=== PATIENT | female | born 1975 | race Caucasian/White ===

== ENCOUNTER 2016-07-06 15:20 | Emergency (ER) | payer MEDICARE, MEDICAID ==
--- NOTE | 2016-07-06 15:24 | EDM.PDOC ---
ED HPI EYE COMPLAINT - General Chief Complaint: Eye Problems Stated Complaint: RT EYE Time Seen by Provider: 07/06/16 15:23 Source: Reports: Patient, Old records, RN, RN notes reviewed History Limitations: Reports: No limitations - History of Present Illness INITIAL COMMENTS - FREE TEXT/NARRATIVE: Patient complains of right eye. Denies injury but awoke this morning with irritation. Denies any visual changes or matting. Symptom Onset Date: 07/06/16 Location: right eye Quality: Reports: Ache Improves with: Reports: None Worsens with: Reports: None - Related Data Allergies/ADRs: Allergies cefdinir [Cefdinir] Allergy (Verified 07/06/16 15:30) Rash sulfamethoxazole [From [facility]] Allergy (Verified 07/06/16 15:30) Airway Tightness Home Meds: Ambulatory Orders Medication Instructions Recorded Confirmed QUEtiapine Fumarate [Seroquel] 800 mg PO BEDTIME 07/22/13 02/07/16 Albuterol [Ventolin HFA] 2 puff INH Q6H PRN 08/23/13 02/07/16 Fluticasone/Salmeterol [Advair 1 puff INH BID 06/04/14 02/07/16 250-50] Gabapentin [Neurontin] 1 tab PO TID 07/06/15 02/07/16 Omeprazole [Prilosec] 1 tab PO DAILY 07/06/15 02/07/16 Aspirin [Lo-Dose Aspirin EC] 81 mg PO DAILY 02/07/16 02/07/16 Levothyroxine 150 mcg PO ACBREAKFAST 02/07/16 02/07/16 Lisinopril 5 mg PO DAILY 02/07/16 02/07/16 Past Medical History HEENT History: Reports: Impaired vision Other HEENT History: wears glasses Cardiovascular History: Reports: Hypertension Respiratory History: Reports: Other (see below) Other Respiratory History: chronic bronchitis Gastrointestinal History: Reports: GERD, Hepatitis Genitourinary History: Reports: Other (see below) Other Genitourinary History: Stage 3 renal disease Psychiatric History: Reports: Bipolar, PTSD Endocrine/Metabolic History: Reports: Diabetes, type II, Hypothyroidism - Infectious Disease History Infectious Disease History: Reports: Hepatitis C - Past Surgical History HEENT Surgical History: Reports: Adenoidectomy, Tonsillectomy Female Surgical History: Reports: section Musculoskeletal Surgical History: Reports: Arthroscopic knee, Other (see below) Other Musculoskeletal Surgeries/Procedures:: surgery on left little finger Social & Family History - Family History Family Medical History: Noncontributory - Tobacco Use Smoking Status *Q: Current Every Day Smoker Years of Tobacco use: 10 Packs/Tins Daily: 10 Used Tobacco, but Quit: No Month Tobacco Last Used: 09/26/2014 Second Hand Smoke Exposure: Yes - Caffeine Use Caffeine Use: Reports: Coffee, Soda - Alcohol Use Days Per Week of Alcohol Use: 3 Number of Drinks Per Day: 6 Total Drinks Per Week: 18 - Recreational Drug Use Recreational Drug Use: No - Living Situation & Occupation Living situation: Reports: with family Occupation: employed ED ROS GENERAL - Review of Systems Review Of Systems: ROS reveals no pertinent complaints other than HPI. ED EXAM GENERAL W FULL EYE - Physical Exam Exam: See Below Exam Limited By: No limitations General Appearance: alert, WD/WN, no apparent distress Eye Exam: right eye: corneal abrasion, normal fundi, left eye: normal inspection , bilateral eye: EOMI, PERRL Eyelids: bilateral: normal appearance Conjunctiva & Sclera: right: injected, left: normal appearance Cornea Exam: right: corneal abrasion, examined with flourescein, left: normal appearance Extraocular Movements: bilateral: intact Pupils: normal accommodation Pupillary Size: bilateral: 4 mm Pupillary Reaction: bilateral: brisk Anterior Chamber: right: normal appearance Ears: normal external exam, normal canal, hearing grossly normal, normal TMs Nose: normal inspection, normal mucosa, no blood Throat/Mouth: Normal inspection, Normal lips, Normal teeth, Normal gums, Normal oropharynx, Normal voice, No airway compromise Head: atraumatic, normocephalic Neck: normal inspection, supple, non-tender, full range of motion Respiratory/Chest: no respiratory distress Psychiatric: normal affect, normal mood Skin Exam: Warm, Dry, Intact, Normal color, No rash Course - Vital Signs Last Recorded V/S: Last Vital Signs Temp 37.2 C 07/06/16 15:26 Pulse 130 H 07/06/16 15:26 Resp 18 07/06/16 15:26 BP 147/92 H 07/06/16 15:26 Pulse Ox 100 07/06/16 15:26 - Orders/Labs/Meds Meds: Medications Discontinued Medications Generic Name Dose Route Start Last Admin Trade Name Juan C PRN Reason Stop Dose Admin Fluorescein Sodium 1 mg 07/06/16 15:41 07/06/16 15:44 Ful-Jaymie EYERT 07/06/16 15:42 1 mg ONETIME ONE Administration Gentamicin Sulfate 1 ml 07/06/16 15:53 07/06/16 16:03 Garamycin 0.3% Ophth Soln EYERT 07/06/16 15:54 1 ml ONETIME ONE Administration Tetracaine HCl 1 ml 07/06/16 15:40 07/06/16 15:44 Tetracaine 0.5% Steri-Unit Tresa EYERT 07/06/16 15:41 1 ml ONETIME ONE Administration Departure - Departure Time of Disposition: 15:54 Disposition: Home, Self-Care 01 Condition: good Clinical Impression: Corneal abrasion Qualifiers: Encounter type: initial encounter Laterality: right Qualified Code(s): S05.01XA - Injury of conjunctiva and corneal abrasion without foreign body, right eye, initial encounter Instructions: Corneal Abrasion, [id number] Forms: ED Department Discharge Additional Instructions: Gentamicin Ophthalmic Soln. 0.3% 1 drop into right eye four times a day for 5 days. Follow up in eye clinic in 2 days for recheck.
[2016-07-06 15:29] VITALS: BP 147/92
[2016-07-06] MEDS ORDERED: Tetracaine HCl/PF 0.5% 4 ML Bottle EYERT ONE (15:40)
[2016-07-06] MEDS ORDERED: Fluorescein 1 MG Ophth Strip EYERT ONE (15:41)
[2016-07-06] MEDS ORDERED: Gentamicin 0.3% Ophth Soln 5 ML Bottle EYERT ONE (15:53)
== END 2016-07-06 16:04 | disposition home or self-care (01) ==
LOC: DL.ED 15:20
DX: S05.01XA Injury of conjunctiva and corneal abrasion without foreign body, right eye, initial encounter (principal); I10 Essential (primary) hypertension; E11.9 Type 2 diabetes mellitus without complications; E03.9 Hypothyroidism, unspecified; F17.210 Nicotine dependence, cigarettes, uncomplicated; Z88.2 Allergy status to sulfonamides; Z79.899 Other long term (current) drug therapy; X58.XXXA Exposure to other specified factors, initial encounter
CPT/HCPCS: 99282; A9270; 99283

== ENCOUNTER 2016-09-28 00:20 | Emergency (ER) | payer MEDICARE, MEDICAID ==
[2016-09-28] MEDS ORDERED: Ondansetron 4 MG/2 ML SDV IV ONE (00:55)
--- NOTE | 2016-09-28 01:01 | EDM.PDOC ---
ED HPI GENERAL MEDICAL PROBLEM - General Chief Complaint: Abdominal Pain Stated Complaint: STOMACH AND CHEST PAIN Time Seen by Provider: 09/28/16 00:45 Source of Information: Reports: Patient History Limitations: Reports: No Limitations - History of Present Illness INITIAL COMMENTS - FREE TEXT/NARRATIVE: This 41 yo female patient reports to the ED with abdominal pain and bloating. The patient reports her symptoms started on Wednesday (6 days ago) and have been getting worse. The patient has not had any clinic visits for her current symptoms. The patient reports she is also feeling nauseated. The patient has a past history of kidney disease, hepitits C, ETOH use, degenerative disk disease and a remote history of drug use. Onset Date: 09/22/16 Duration: Constant, Getting Worse Location: Reports: Abdomen Quality: Reports: Dull, Pressure Severity: Severe Improves with: Reports: None Worsens with: Reports: None Associated Symptoms: Reports: No Other Symptoms - Related Data Allergies Allergy/AdvReac Type Severity Reaction Status Date / Time cefdinir [Cefdinir] Allergy Rash Verified 07/06/16 15:30 sulfamethoxazole Allergy Airway Verified 07/06/16 15:30 [From [facility]] Tightness Home Meds: Home Meds QUEtiapine Fumarate [Seroquel] 800 mg PO BEDTIME 07/22/13 [History] Albuterol [Ventolin HFA] 2 puff INH Q6H PRN 08/23/13 [History] Fluticasone/Salmeterol [Advair 250-50] 1 puff INH BID 06/04/14 [History] Gabapentin [Neurontin] 1 tab PO TID 07/06/15 [History] Omeprazole [Prilosec] 1 tab PO DAILY 07/06/15 [History] Aspirin [Lo-Dose Aspirin EC] 81 mg PO DAILY 02/07/16 [History] Levothyroxine 150 mcg PO ACBREAKFAST 02/07/16 [History] Lisinopril 5 mg PO DAILY 02/07/16 [History] Past Medical History HEENT History: Reports: Impaired Vision Other HEENT History: wears glasses Cardiovascular History: Reports: Hypertension Respiratory History: Reports: Other (See Below) Other Respiratory History: chronic bronchitis Gastrointestinal History: Reports: GERD, Hepatitis Genitourinary History: Reports: Other (See Below) Other Genitourinary History: Stage 3 renal disease Psychiatric History: Reports: Bipolar, PTSD Endocrine/Metabolic History: Reports: Diabetes, Type II, Hypothyroidism - Infectious Disease History Infectious Disease History: Reports: Hepatitis C - Past Surgical History Female Surgical History: Reports: Section Musculoskeletal Surgical History: Reports: Arthroscopic Knee, Other (See Below) Social & Family History - Family History Family Medical History: Noncontributory - Tobacco Use Smoking Status *Q: Current Every Day Smoker Years of Tobacco use: 10 Packs/Tins Daily: 10 Used Tobacco, but Quit: No Month Tobacco Last Used: 09/26/2014 Second Hand Smoke Exposure: Yes - Caffeine Use Caffeine Use: Reports: Coffee, Soda - Alcohol Use Days Per Week of Alcohol Use: 3 Number of Drinks Per Day: 6 Total Drinks Per Week: 18 - Recreational Drug Use Recreational Drug Use: No - Living Situation & Occupation Living situation: Reports: with Family Occupation: Employed ED ROS GENERAL - Review of Systems Review Of Systems: ROS reveals no pertinent complaints other than HPI. ED EXAM, GI/ABD - Physical Exam Exam: See Below Exam Limited By: No Limitations General Appearance: Alert, WD/WN, Moderate Distress Eyes: Bilateral: Normal Appearance, EOMI Ears: Normal External Exam, Normal Canal, Hearing Grossly Normal, Normal TMs Nose: Normal Inspection, Normal Mucosa, No Blood Throat/Mouth: Normal Inspection, Normal Lips, Normal Teeth, Normal Gums, Normal Oropharynx, Normal Voice, No Airway Compromise Head: Atraumatic, Normocephalic Neck: Normal Inspection, Supple, Non-Tender, Full Range of Motion Respiratory/Chest: No Respiratory Distress, Lungs Clear, Normal Breath Sounds, No Accessory Muscle Use, Chest Non-Tender Cardiovascular: Normal Peripheral Pulses, Regular Rate, Rhythm, No Edema, No Gallop, No JVD, No Murmur, No Rub GI/Abdominal: Normal Bowel Sounds, Tenderness (generalized), Distention (diffuse ) (Female) Exam: Deferred Rectal (Female) Exam: Deferred Back Exam: Normal Inspection, Full Range of Motion, NT Extremities: Normal Inspection, Normal Range of Motion, Non-Tender, Normal Capillary Refill, No Pedal Edema Neurological: Alert, Oriented, CN II-XII Intact, Normal Cognition, Normal Gait, Normal Reflexes, No Motor/Sensory Deficits Psychiatric: Normal Affect, Normal Mood Skin Exam: Warm, Dry, Intact, Normal Color, No Rash Lymphatic: No Adenopathy Course - Vital Signs Last Recorded V/S: Last Vital Signs Temp 36.7 C 09/28/16 00:30 Pulse 110 H 09/28/16 00:30 Resp 20 09/28/16 00:30 BP 140/97 H 09/28/16 00:30 Pulse Ox 98 09/28/16 00:30 - Orders/Labs/Meds Labs: Laboratory Tests 09/28/16 09/28/16 09/28/16 Range/Units 00:35 00:35 00:35 WBC 6.7 (5.0-10.0) 10^3/uL RBC 3.34 L (4.2-5.4) 10^6/uL Hgb 11.2 L (12.0-16.0) g/dL Hct 33.2 L (37.0-47.0) % MCV 99.4 (80-100) fL MCH 33.5 (27.0-34.0) pg MCHC 33.7 (33.0-35.0) g/dL Plt Count 60 L (150-450) 10^3/uL Neut % (Auto) 32.4 L (42.2-75.2) % Lymph % (Auto) 57.7 H (20.5-50.1) % [place] % (Auto) 5.8 (2-8) % Eos % (Auto) 3.1 H (1.0-3.0) % Baso % (Auto) 1.0 (0.0-1.0) % Sodium 139 (135-145) mmol/L Potassium 3.3 L (3.6-5.0) mmol/L Chloride 107 (101-111) mmol/L Carbon Dioxide 19.0 L (21.0-31.0) mmol/L Anion Gap 16.3 BUN 7 (7-18) mg/dL Creatinine 0.9 (0.6-1.3) mg/dL Est Cr Clr Drug Dosing TNP Estimated GFR (MDRD) > 60 BUN/Creatinine Ratio 7.77 Glucose 255 H (74-105) mg/dL Calcium 8.4 (8.4-10.2) mg/dl Total Bilirubin 0.6 (0.2-1.0) mg/dL AST 232 H (10-42) IU/L ALT 93 H (10-60) IU/L Alkaline Phosphatase 82 (42-121) IU/L Ammonia 38 H (11-35) umol/L Total Protein 6.4 L (6.7-8.2) g/dl Albumin 3.0 L (3.2-5.5) g/dl Globulin 3.4 Albumin/Globulin Ratio 0.88 Amylase 62 (28-100) U/L Lipase 42 (22-51) U/L Ethyl Alcohol 113 mg/dL Meds: Medications Discontinued Medications Generic Name Dose Route Start Last Admin Trade Name Juan C PRN Reason Stop Dose Admin Iopamidol 100 ml 09/28/16 01:15 09/28/16 01:28 Isovue-300 (61%) IVPUSH 09/28/16 01:16 100 ml ONETIME ONE Administration Ondansetron HCl 4 mg 09/28/16 00:55 09/28/16 01:15 Zofran IV 09/28/16 00:56 4 mg ONETIME ONE Administration Departure - Departure Time of Disposition: 04:57 Disposition: DC/Tfer to Acute Hospital 02 Condition: Poor Clinical Impression: Ascites Qualifiers: Ascites type: other type Qualified Code(s): R18.8 - Other ascites Cirrhosis Qualifiers: Hepatic cirrhosis type: unspecified hepatic cirrhosis Ascites presence: with ascites Qualified Code(s): K74.60 - Unspecified cirrhosis of liver - Discharge Information Forms: Interfacility Transfer EMTALA Care Plan Goals: Discussed the patient's history, examination, lab, and CT results with Dr. Schreiber (Hospitalist with [facility] in [place]). Dr. Schreiber accepted the patient for continued evaluation and further management. The patient will be transported by [facility].
[2016-09-28 01:06] LABS: CHLORIDE,CL 107 mmol/L (101-111); SODIUM,NA 139 mmol/L (135-145)
[2016-09-28] MEDS ORDERED: Iopamidol 612 MG/ML 100 ML Bottle IVPUSH ONE (01:15)
[2016-09-28 03:04] VITALS: BP 168/79
== END 2016-09-28 03:25 ==
LOC: DL.ED 00:20
DX: K74.60 Unspecified cirrhosis of liver (principal); R18.8 Other ascites; H54.7 Unspecified visual loss; K21.9 Gastro-esophageal reflux disease without esophagitis; I12.9 Hypertensive chronic kidney disease with stage 1 through stage 4 chronic kidney disease, or unspecified chronic kidney disease; E11.22 Type 2 diabetes mellitus with diabetic chronic kidney disease; N18.3 Chronic kidney disease, stage 3 (moderate); F17.210 Nicotine dependence, cigarettes, uncomplicated; Z88.2 Allergy status to sulfonamides; Z88.8 Allergy status to other drugs, medicaments and biological substances; Z79.899 Other long term (current) drug therapy
CPT/HCPCS: 36415; 74177; 80053; 82140; 82150; 83690; 85025; 96374; 99285; G0480; J2405; Q9967

== ENCOUNTER 2016-11-20 15:46 | Emergency (ER) | payer MEDICARE, MEDICAID ==
[2016-11-20 16:26] LABS: CHLORIDE,CL 102 mmol/L (101-111); SODIUM,NA 135 mmol/L (135-145)
[2016-11-20] MEDS ORDERED: Potassium Chloride 10 MEQ in Premix Bag 1 BAG IV ONE (16:52)
[2016-11-20] MEDS ORDERED: Sodium Chloride 0.9% 250 ML IV SCH (17:00)
[2016-11-20] MEDS ORDERED: Potassium Chloride 10 MEQ Tab.ER PO ONE (18:08)
--- NOTE | 2016-11-20 18:15 | EDM.PDOC ---
ED HPI GENERAL MEDICAL PROBLEM - General Chief Complaint: Chest Pain Stated Complaint: CHEST PAIN, NUMBNESS IN FACE, [id number] Time Seen by Provider: 11/20/16 17:05 Source of Information: Reports: Patient History Limitations: Reports: No Limitations - History of Present Illness INITIAL COMMENTS - FREE TEXT/NARRATIVE: This 41 yo female reports to the ED with left sided facial tingling, left sided chest pain and shortness of breath. The patient reports she has been feeling this way for the past 24 hours with no improvement. The patient has not been following up with her primary care facility after her previous hospitalization in [facility]. 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, IV/IO Chest Pain Score (Numeric/FACES): 5 - Related Data Allergies Allergy/AdvReac Type Severity Reaction Status Date / Time cefdinir [Cefdinir] Allergy Rash Verified 11/20/16 16:02 sulfamethoxazole Allergy Airway Verified 11/20/16 16:02 [From [facility]] Tightness Home Meds: Home Meds QUEtiapine Fumarate [Seroquel] 300 mg PO BEDTIME 07/22/13 [History] Albuterol [Ventolin HFA] 2 puff INH Q6H PRN 08/23/13 [History] Fluticasone/Salmeterol [Advair 250-50] 1 puff INH BID 06/04/14 [History] Gabapentin [Neurontin] 1 tab PO TID 07/06/15 [History] Omeprazole [Prilosec] 1 tab PO DAILY 07/06/15 [History] Levothyroxine 150 mcg PO ACBREAKFAST 02/07/16 [History] Lisinopril 5 mg PO DAILY 02/07/16 [History] Furosemide [Lasix] 20 mg PO DAILY 11/20/16 [History] Spironolactone 50 mg PO DAILY 11/20/16 [History] traMADol [Ultram] 50 mg PO BID PRN 11/20/16 [History] Past Medical History HEENT History: Reports: Impaired Vision Other HEENT History: wears glasses Cardiovascular History: Reports: Hypertension Respiratory History: Reports: Other (See Below) Other Respiratory History: chronic bronchitis Gastrointestinal History: Reports: GERD, Hepatitis Genitourinary History: Reports: Other (See Below) Other Genitourinary History: Stage 3 renal disease Psychiatric History: Reports: Bipolar, PTSD Endocrine/Metabolic History: Reports: Diabetes, Type II, Hypothyroidism - Infectious Disease History Infectious Disease History: Reports: Hepatitis C - Past Surgical History Female Surgical History: Reports: Section Musculoskeletal Surgical History: Reports: Arthroscopic Knee Social & Family History - Family History Family Medical History: Noncontributory - Tobacco Use Smoking Status *Q: Current Every Day Smoker Years of Tobacco use: 30 Packs/Tins Daily: 0.5 Used Tobacco, but Quit: No Month Tobacco Last Used: 09/26/2014 Second Hand Smoke Exposure: Yes - Caffeine Use Caffeine Use: Reports: Soda - Alcohol Use Days Per Week of Alcohol Use: 3 Number of Drinks Per Day: 6 Total Drinks Per Week: 18 - Recreational Drug Use Recreational Drug Use: Yes Drug Use in Last 12 Months: Yes Recreational Drug Type: Reports: Marijuana/Hashish, Methamphetamine Other Recreational Drug Type: 16-17 years meth use. Recently has smoked THC. - Living Situation & Occupation Living situation: Reports: with Family Occupation: Employed ED ROS GENERAL - Review of Systems Review Of Systems: ROS reveals no pertinent complaints other than HPI. ED EXAM, GENERAL - Physical Exam Exam: See Below Exam Limited By: No Limitations General Appearance: Alert, WD/WN, Mild Distress Eye Exam: Bilateral Eye: EOMI, Normal Inspection, PERRL Ears: Normal External Exam, Normal Canal, Hearing Grossly Normal, Normal TMs Nose: Normal Inspection, Normal Mucosa, No Blood Throat/Mouth: Normal Inspection, Normal Lips, Normal Teeth, Normal Gums, Normal Oropharynx, Normal Voice, No Airway Compromise Head: Atraumatic, Normocephalic Neck: Normal Inspection, Supple, Non-Tender, Full Range of Motion Respiratory/Chest: No Respiratory Distress, Lungs Clear, Normal Breath Sounds, No Accessory Muscle Use, Chest Non-Tender Cardiovascular: Normal Peripheral Pulses, Regular Rate, Rhythm, No Edema, No Gallop, No JVD, No Murmur, No Rub GI/Abdominal: Normal Bowel Sounds, Soft, Non-Tender, No Organomegaly, No Distention, No Abnormal Bruit, No Mass (Female) Exam: Deferred Rectal (Female) Exam: Deferred Back Exam: Normal Inspection, Full Range of Motion, NT Extremities: Normal Inspection, Normal Range of Motion, Non-Tender, Normal Capillary Refill, No Pedal Edema Neurological: Alert, Oriented, CN II-XII Intact, Normal Cognition, Normal Gait, Normal Reflexes, No Motor/Sensory Deficits Psychiatric: Normal Affect, Normal Mood Skin Exam: Warm, Dry, Intact, Normal Color, No Rash Lymphatic: No Adenopathy Course - Vital Signs Last Recorded V/S: Last Vital Signs Temp Pulse 91 11/20/16 16:56 Resp 14 11/20/16 16:56 BP 115/65 11/20/16 16:56 Pulse Ox - Orders/Labs/Meds Orders: Active Orders 24 hr Category Date Time Status EKG Documentation Completion [RC] URGENT Care 11/20/16 15:50 Active Sodium Chloride 0.9% [Normal Saline] 250 ml Med 11/20/16 17:00 Active IV ASDIRECTED Medication Orders Sodium Chloride (Normal Saline) 250 mls @ 25 mls/hr IV ASDIRECTED JAMEL Last Admin: 11/20/16 16:58 Dose: 25 mls/hr Labs: Laboratory Tests 11/20/16 11/20/16 Range/Units 16:00 16:00 WBC 3.4 L (5.0-10.0) 10^3/uL RBC 3.10 L (4.2-5.4) 10^6/uL Hgb 10.0 L (12.0-16.0) g/dL Hct 30.4 L (37.0-47.0) % MCV 98.1 (80-100) fL MCH 32.3 (27.0-34.0) pg MCHC 32.9 L (33.0-35.0) g/dL Plt Count 23 L* (150-450) 10^3/uL Neut % (Auto) 61.2 (42.2-75.2) % Lymph % (Auto) 28.2 (20.5-50.1) % [place] % (Auto) 7.1 (2-8) % Eos % (Auto) 3.2 H (1.0-3.0) % Baso % (Auto) 0.3 (0.0-1.0) % Sodium 135 (135-145) mmol/L Potassium 3.2 L (3.6-5.0) mmol/L Chloride 102 (101-111) mmol/L Carbon Dioxide 24.0 (21.0-31.0) mmol/L Anion Gap 12.2 BUN 8 (7-18) mg/dL Creatinine 0.9 (0.6-1.3) mg/dL Est Cr Clr Drug Dosing TNP Estimated GFR (MDRD) > 60 BUN/Creatinine Ratio 8.88 Glucose 185 H (74-105) mg/dL Calcium 8.5 (8.4-10.2) mg/dl Total Bilirubin 1.3 H (0.2-1.0) mg/dL AST 166 H (10-42) IU/L ALT 97 H (10-60) IU/L Alkaline Phosphatase 88 (42-121) IU/L Troponin I 0.02 (0.00-0.02) ng/ml Total Protein 6.1 L (6.7-8.2) g/dl Albumin 2.8 L (3.2-5.5) g/dl Globulin 3.3 Albumin/Globulin Ratio 0.85 Meds: Medications Generic Name Dose Route Start Last Admin Trade Name Freq PRN Reason Stop Dose Admin Sodium Chloride 250 mls @ 25 mls/hr 11/20/16 17:00 11/20/16 16:58 Normal Saline IV 25 mls/hr ASDIRECTED JAMEL Administration Discontinued Medications Generic Name Dose Route Start Last Admin Trade Name Freq PRN Reason Stop Dose Admin Potassium Chloride 10 meq/ 100 mls @ 100 mls/hr 11/20/16 16:52 11/20/16 16:58 Premix IV 11/20/16 17:51 100 mls/hr ONETIME ONE Administration Potassium Chloride 20 meq 11/20/16 18:08 Klor-Con 10 PO 11/20/16 18:09 ONETIME ONE Departure - Departure Time of Disposition: 18:11 Disposition: Home, Self-Care 01 Condition: Fair Clinical Impression: Hypokalemia Instructions: Hypokalemia, Nonspecific Chest Pain, [id number] Forms: ED Department Discharge Care Plan Goals: The patient was advised of the evaluation, lab and EKG results during the visit. The patient was given IV Potassium and an oral dose of Potassium while in the ED. The patient was discharged with a script for Potassium Chloride (10 mEq) #6 to take 1 by mouth daily. If the patient has any additional symptoms or concerns, the patient should follow-up with her primary care facility or return to the emergency department. - My Orders Last 24 Hours: My Active Orders 11/20/16 15:50 EKG Documentation Completion [RC] URGENT 11/20/16 17:00 Sodium Chloride 0.9% [Normal Saline] 250 ml IV ASDIRECTED - Assessment/Plan Last 24 Hours: My Active Orders 11/20/16 15:50 EKG Documentation Completion [RC] URGENT 11/20/16 17:00 Sodium Chloride 0.9% [Normal Saline] 250 ml IV ASDIRECTED
[2016-11-20 18:18] VITALS: BP 116/86
--- NOTE | 2016-11-26 07:06 | EKG ---
11/20/2016- YIMI PATTON - EKG per my reading shows sinus rhythm at a rate of 91. [facility] /[id number]
== END 2016-11-20 18:22 | disposition home or self-care (01) ==
LOC: DL.ED 15:46
DX: E87.6 Hypokalemia (principal); H54.7 Unspecified visual loss; I10 Essential (primary) hypertension; K21.9 Gastro-esophageal reflux disease without esophagitis; N18.3 Chronic kidney disease, stage 3 (moderate); I12.9 Hypertensive chronic kidney disease with stage 1 through stage 4 chronic kidney disease, or unspecified chronic kidney disease; E11.22 Type 2 diabetes mellitus with diabetic chronic kidney disease; E03.9 Hypothyroidism, unspecified; F17.210 Nicotine dependence, cigarettes, uncomplicated; Z79.899 Other long term (current) drug therapy; Z88.8 Allergy status to other drugs, medicaments and biological substances; Z90.49 Acquired absence of other specified parts of digestive tract
CPT/HCPCS: 36415; 80053; 84484; 85025; 93005; 96365; 99285; A9270; J3480; J7050; 93010; 99284

== ENCOUNTER 2016-12-27 18:37 | Emergency (ER) | payer MEDICARE, MEDICAID ==
[2016-12-27] MEDS ORDERED: Albuterol 0.083% 2.5 MG/3 ML Neb Soln INH ONE (18:38)
[2016-12-27] MEDS ORDERED: Albuterol/Ipratropium 3.0-0.5 MG/3 ML Neb Soln NEB ONE (19:06)
[2016-12-27 19:20] LABS: CHLORIDE,CL 102 mmol/L (101-111); SODIUM,NA 135 mmol/L (135-145)
[2016-12-27 19:32] VITALS: BP 126/74
[2016-12-27] MEDS ORDERED: predniSONE 20 MG Tab PO ONE (20:58)
[2016-12-27] MEDS ORDERED: Albuterol 0.083% 2.5 MG/3 ML Neb Soln ONE (20:59)
--- NOTE | 2016-12-27 21:02 | EDM.PDOC ---
ED HPI GENERAL MEDICAL PROBLEM - General Chief Complaint: Chest Pain Stated Complaint: CHEST PAIN Time Seen by Provider: 12/27/16 19:15 Source of Information: Reports: Patient History Limitations: Reports: No Limitations - History of Present Illness INITIAL COMMENTS - FREE TEXT/NARRATIVE: C/o chest pain with cough for past 2 week, Cough non productive. Intermittent fevers/. chills. Duration: Getting Worse Location: Reports: Chest Quality: Reports: Burning Severity: Moderate Chest Pain Score (Numeric/FACES): 9 - Related Data Allergies Allergy/AdvReac Type Severity Reaction Status Date / Time cefdinir [Cefdinir] Allergy Rash Verified 12/27/16 18:42 sulfamethoxazole Allergy Airway Verified 12/27/16 18:42 [From ] Tightness Home Meds: Home Meds QUEtiapine Fumarate [Seroquel] 300 mg PO BEDTIME 07/22/13 [History] Albuterol [Ventolin HFA] 2 puff INH Q6H PRN 08/23/13 [History] Fluticasone/Salmeterol [Advair 250-50] 1 puff INH BID 06/04/14 [History] Gabapentin [Neurontin] 1 tab PO TID 07/06/15 [History] Omeprazole [Prilosec] 1 tab PO DAILY 07/06/15 [History] Levothyroxine 150 mcg PO ACBREAKFAST 02/07/16 [History] Lisinopril 5 mg PO DAILY 02/07/16 [History] Furosemide [Lasix] 20 mg PO DAILY 11/20/16 [History] Spironolactone 50 mg PO DAILY 11/20/16 [History] traMADol [Ultram] 50 mg PO BID PRN 11/20/16 [History] Past Medical History HEENT History: Reports: Impaired Vision Other HEENT History: wears glasses Cardiovascular History: Reports: Hypertension Respiratory History: Reports: Other (See Below) Other Respiratory History: chronic bronchitis Gastrointestinal History: Reports: GERD, Hepatitis Genitourinary History: Reports: Other (See Below) Other Genitourinary History: Stage 3 renal disease Neurological History: Reports: None Psychiatric History: Reports: Bipolar, PTSD Endocrine/Metabolic History: Reports: Diabetes, Type II, Hypothyroidism Hematologic History: Reports: None Immunologic History: Reports: None Oncologic (Cancer) History: Reports: None - Infectious Disease History Infectious Disease History: Reports: Hepatitis C - Past Surgical History Female Surgical History: Reports: Section Musculoskeletal Surgical History: Reports: Arthroscopic Knee Social & Family History - Family History Family Medical History: Noncontributory - Tobacco Use Smoking Status *Q: Current Every Day Smoker Years of Tobacco use: 30 Packs/Tins Daily: 0.5 Used Tobacco, but Quit: No Month Tobacco Last Used: 09/26/2014 Second Hand Smoke Exposure: Yes - Caffeine Use Caffeine Use: Reports: Soda - Alcohol Use Days Per Week of Alcohol Use: 3 Number of Drinks Per Day: 6 Total Drinks Per Week: 18 - Recreational Drug Use Recreational Drug Use: No Drug Use in Last 12 Months: Yes Recreational Drug Type: Reports: Marijuana/Hashish, Methamphetamine Other Recreational Drug Type: 16-17 years meth use. Recently has smoked THC. - Living Situation & Occupation Living situation: Reports: with Family Occupation: Employed ED ROS GENERAL - Review of Systems Review Of Systems: See Below Constitutional: Reports: Fatigue. Denies: Fever HEENT: Reports: No Symptoms Respiratory: Reports: Shortness of Breath, Wheezing, Cough GI/Abdominal: Reports: No Symptoms Skin: Reports: No Symptoms (smll over arms), Bruising Neurological: Reports: No Symptoms Hematologic/Lymphatic: Reports: Anemia. Denies: Easy Bleeding ED EXAM, GENERAL - Physical Exam Exam: See Below Exam Limited By: No Limitations General Appearance: Alert, WD/WN, No Apparent Distress Eye Exam: Bilateral Eye: EOMI, PERRL Ears: Normal External Exam Nose: Normal Inspection Throat/Mouth: Normal Inspection, Normal Voice (mild hoarsness) Head: Atraumatic Neck: Normal Inspection, Supple, Non-Tender, Full Range of Motion Respiratory/Chest: Decreased Breath Sounds, Wheezing (scattered) Cardiovascular: Regular Rate, Rhythm, No Murmur GI/Abdominal: Normal Bowel Sounds, Soft, Non-Tender Extremities: Normal Inspection Neurological: Alert, Oriented Psychiatric: Normal Affect, Normal Mood Skin Exam: Warm, Dry, Intact, Normal Color, Ecchymosis (scattered smal 3-5mm bruied area upper extremities) Course - Vital Signs Last Recorded V/S: Last Vital Signs Temp 99.4 F 12/27/16 18:42 Pulse 105 H 12/27/16 19:32 Resp 18 12/27/16 19:32 BP 126/74 12/27/16 19:32 Pulse Ox 97 12/27/16 19:32 Orthostatic Blood Pressure [ 117/79 Standing] Orthostatic Blood Pressure [ 128/78 Sitting] Orthostatic Blood Pressure [ 118/78 Supine] - Orders/Labs/Meds Labs: Laboratory Tests 12/27/16 12/27/16 12/27/16 Range/Units 18:50 18:50 18:50 WBC 4.7 L (5.0-10.0) 10^3/uL RBC 3.12 L (4.2-5.4) 10^6/uL Hgb 9.8 L (12.0-16.0) g/dL Hct 30.2 L (37.0-47.0) % MCV 96.8 (80-100) fL MCH 31.4 (27.0-34.0) pg MCHC 32.5 L (33.0-35.0) g/dL Plt Count 31 L* (150-450) 10^3/uL Neut % (Auto) 53.0 (42.2-75.2) % Lymph % (Auto) 37.9 (20.5-50.1) % [place] % (Auto) 8.1 H (2-8) % Eos % (Auto) 0.6 L (1.0-3.0) % Baso % (Auto) 0.4 (0.0-1.0) % Sodium 135 (135-145) mmol/L Potassium 3.8 (3.6-5.0) mmol/L Chloride 102 (101-111) mmol/L Carbon Dioxide 21.0 (21.0-31.0) mmol/L Anion Gap 15.8 BUN 6 L (7-18) mg/dL Creatinine 0.7 (0.6-1.3) mg/dL Est Cr Clr Drug Dosing 104.53 mL/min Estimated GFR (MDRD) > 60 BUN/Creatinine Ratio 8.57 Glucose 114 H (74-105) mg/dL Lactic Acid (0.5-2.2) mmol/L Calcium 8.5 (8.4-10.2) mg/dl Total Bilirubin 1.4 H (0.2-1.0) mg/dL AST 136 H (10-42) IU/L ALT 57 (10-60) IU/L Alkaline Phosphatase 86 (42-121) IU/L CK-MB (CK-2) 1.20 (0.4-4.7) ng/mL Troponin I < 0.02 (0.00-0.02) ng/ml Total Protein 6.6 L (6.7-8.2) g/dl Albumin 2.9 L (3.2-5.5) g/dl Globulin 3.7 Albumin/Globulin Ratio 0.78 Amylase 43 (28-100) U/L Lipase 51 (22-51) U/L Ethyl Alcohol mg/dL 12/27/16 12/27/16 Range/Units 18:50 18:50 WBC (5.0-10.0) 10^3/uL RBC (4.2-5.4) 10^6/uL Hgb (12.0-16.0) g/dL Hct (37.0-47.0) % MCV (80-100) fL MCH (27.0-34.0) pg MCHC (33.0-35.0) g/dL Plt Count (150-450) 10^3/uL Neut % (Auto) (42.2-75.2) % Lymph % (Auto) (20.5-50.1) % [place] % (Auto) (2-8) % Eos % (Auto) (1.0-3.0) % Baso % (Auto) (0.0-1.0) % Sodium (135-145) mmol/L Potassium (3.6-5.0) mmol/L Chloride (101-111) mmol/L Carbon Dioxide (21.0-31.0) mmol/L Anion Gap BUN (7-18) mg/dL Creatinine (0.6-1.3) mg/dL Est Cr Clr Drug Dosing mL/min Estimated GFR (MDRD) BUN/Creatinine Ratio Glucose (74-105) mg/dL Lactic Acid 2.5 H (0.5-2.2) mmol/L Calcium (8.4-10.2) mg/dl Total Bilirubin (0.2-1.0) mg/dL AST (10-42) IU/L ALT (10-60) IU/L Alkaline Phosphatase (42-121) IU/L CK-MB (CK-2) (0.4-4.7) ng/mL Troponin I (0.00-0.02) ng/ml Total Protein (6.7-8.2) g/dl Albumin (3.2-5.5) g/dl Globulin Albumin/Globulin Ratio Amylase (28-100) U/L Lipase (22-51) U/L Ethyl Alcohol 32 mg/dL Meds: Medications Discontinued Medications Generic Name Dose Route Start Last Admin Trade Name Juan C PRN Reason Stop Dose Admin Albuterol Confirm 12/27/16 20:59 12/27/16 21:06 Proventil Neb Soln Administered 12/27/16 21:00 Not Given Dose 7.5 mg .ROUTE .STK-MED ONE Albuterol 7.5 mg 12/27/16 18:38 Proventil Neb Soln INH 12/27/16 18:39 .STK-MED ONE Albuterol/Ipratropium 3 ml 12/27/16 19:06 12/27/16 19:15 Duoneb 3.0-0.5 Mg/3 Ml NEB 12/27/16 19:07 3 ml ONETIME ONE Administration Prednisone 20 mg 12/27/16 20:58 12/27/16 21:06 Prednisone PO 12/27/16 20:59 20 mg ONETIME ONE Administration - Radiology Interpretation Free Text/Narrative:: CXR negative - Re-Assessments/Exams Free Text/Narrative Re-Assessment/Exam: 12/31/16 06:20 Lab studies reviewed with patient. Notes none are surprising. Had similar values few weeks ago Scheduled follow up with specialist end of month. to determine cause. Departure - Departure Time of Disposition: 20:58 Disposition: Home, Self-Care 01 Condition: Good Clinical Impression: Acute exacerbation of chronic obstructive airways disease, Thrombocytopenia - Discharge Information Instructions: Chronic Obstructive Pulmonary Disease Exacerbation, Nonspecific Chest Pain, [id number] Referrals: Moisés Banks NP [Primary Care Provider] - Forms: ED Department Discharge Additional Instructions: prednisone 20mg daily for 5 days follow up with primary care this week avoid alcohol albuterol nebulizer 2.5/3ml one every 4 hours as needed for wheezing and cough follow with specialty appointments as scheduled for low blood counts.
--- NOTE | 2017-01-11 07:43 | EKG ---
12/27/2016- YIMI PATTON - This is a standard 12-lead EKG showing normal sinus tachycardia with ventricular rate of 110 beats per minute. Normal OK interval and QRS duration. No significant ST-T changes. [facility] /[id number]
== END 2016-12-27 21:08 | disposition home or self-care (01) ==
LOC: DL.ED 18:37
DX: J44.1 Chronic obstructive pulmonary disease with (acute) exacerbation (principal); D69.6 Thrombocytopenia, unspecified; K21.9 Gastro-esophageal reflux disease without esophagitis; E03.9 Hypothyroidism, unspecified; F17.210 Nicotine dependence, cigarettes, uncomplicated; N18.3 Chronic kidney disease, stage 3 (moderate); E11.22 Type 2 diabetes mellitus with diabetic chronic kidney disease; I12.9 Hypertensive chronic kidney disease with stage 1 through stage 4 chronic kidney disease, or unspecified chronic kidney disease; Z88.2 Allergy status to sulfonamides; Z88.8 Allergy status to other drugs, medicaments and biological substances; Z79.899 Other long term (current) drug therapy
CPT/HCPCS: 36415; 71010; 80053; 82150; 82553; 83605; 83690; 84484; 85025; 87040; 93005; 93010; 99285; A9270; G0480; J7620; 99284

== ENCOUNTER 2017-03-11 11:54 | Emergency (ER) | payer MEDICARE, MEDICAID ==
[2017-03-11] MEDS ORDERED: Albuterol/Ipratropium 3.0-0.5 MG/3 ML Neb Soln NEB ONE (12:10)
--- NOTE | 2017-03-11 12:19 | EDM.PDOC ---
ED HPI GENERAL MEDICAL PROBLEM - General Chief Complaint: Respiratory Problem Stated Complaint: SHORT OF BREATH Time Seen by Provider: 03/11/17 12:10 Source of Information: Reports: Patient History Limitations: Reports: No Limitations - History of Present Illness INITIAL COMMENTS - FREE TEXT/NARRATIVE: This 41 yo female patient reports to the ED with increased shortness of breath over the past 2 weeks. The patient reports she recently finished Augmentin and an other antibiotic, but has not gotten any better. The patient reports that she has an appointment this afternoon with Efrain Banks, but does not believe she can wait that long. The patient continues to smoke despite breathing problems. Onset: Gradual Duration: Week(s):, Constant, Getting Worse Location: Reports: Chest Quality: Reports: Other Severity: Severe Improves with: Reports: None Worsens with: Reports: None Associated Symptoms: Reports: Shortness of Breath, Weakness - Related Data Allergies Allergy/AdvReac Type Severity Reaction Status Date / Time cefdinir [Cefdinir] Allergy Rash Verified 03/11/17 12:01 sulfamethoxazole Allergy Airway Verified 03/11/17 12:01 [From [facility]] Tightness Home Meds: Home Meds QUEtiapine Fumarate [Seroquel] 300 mg PO BEDTIME 07/22/13 [History] Albuterol [Ventolin HFA] 2 puff INH Q6H PRN 08/23/13 [History] Fluticasone/Salmeterol [Advair 250-50] 1 puff INH BID 06/04/14 [History] Gabapentin [Neurontin] 1 tab PO TID 07/06/15 [History] Levothyroxine 150 mcg PO ACBREAKFAST 02/07/16 [History] Furosemide [Lasix] 20 mg PO DAILY 11/20/16 [History] Spironolactone 100 mg PO DAILY 11/20/16 [History] Albuterol Sulfate 1 each INH Q4H PRN 03/11/17 [History] Past Medical History HEENT History: Reports: Impaired Vision Other HEENT History: wears glasses Cardiovascular History: Reports: Hypertension Respiratory History: Reports: COPD, Other (See Below) Other Respiratory History: chronic bronchitis Gastrointestinal History: Reports: Cirrhosis, GERD, Hepatitis Other Gastrointestinal History: HEP C Genitourinary History: Reports: Chronic Renal Insuffiency, Other (See Below) Other Genitourinary History: Stage 3 renal disease Neurological History: Reports: None Psychiatric History: Reports: Bipolar, PTSD Endocrine/Metabolic History: Reports: Diabetes, Type II, Hypothyroidism Other Endocrine/Metabolic History: "weight loss treatment for DM II" Hematologic History: Reports: None Immunologic History: Reports: None Oncologic (Cancer) History: Reports: None - Infectious Disease History Infectious Disease History: Reports: Hepatitis C - Past Surgical History Female Surgical History: Reports: Section Musculoskeletal Surgical History: Reports: Arthroscopic Knee Social & Family History - Family History Family Medical History: Noncontributory - Tobacco Use Smoking Status *Q: Current Every Day Smoker Years of Tobacco use: 30 Packs/Tins Daily: 0.5 Used Tobacco, but Quit: No Month Tobacco Last Used: 09/26/2014 Second Hand Smoke Exposure: Yes - Caffeine Use Caffeine Use: Reports: Soda - Alcohol Use Days Per Week of Alcohol Use: 3 Number of Drinks Per Day: 6 Total Drinks Per Week: 18 - Recreational Drug Use Recreational Drug Use: No Drug Use in Last 12 Months: Yes Recreational Drug Type: Reports: Marijuana/Hashish, Methamphetamine Other Recreational Drug Type: 16-17 years meth use. Recently has smoked THC. - Living Situation & Occupation Living situation: Reports: with Family Occupation: Employed ED ROS GENERAL - Review of Systems Review Of Systems: ROS reveals no pertinent complaints other than HPI. ED EXAM, GENERAL - Physical Exam Exam: See Below Exam Limited By: No Limitations General Appearance: Alert, WD/WN, Moderate Distress Eye Exam: Bilateral Eye: EOMI, Normal Inspection, PERRL Ears: Normal External Exam, Normal Canal, Hearing Grossly Normal, Normal TMs Nose: Normal Inspection, Normal Mucosa, No Blood Throat/Mouth: Normal Inspection, Normal Lips, Normal Teeth, Normal Gums, Normal Oropharynx, Normal Voice, No Airway Compromise Head: Atraumatic, Normocephalic Neck: Normal Inspection, Supple, Non-Tender, Full Range of Motion Respiratory/Chest: Decreased Breath Sounds, Rhonchi (diffuse right side) Cardiovascular: Normal Peripheral Pulses, Regular Rate, Rhythm, No Edema, No Gallop, No JVD, No Murmur, No Rub GI/Abdominal: Normal Bowel Sounds, Soft, Non-Tender, No Organomegaly, No Distention, No Abnormal Bruit, No Mass (Female) Exam: Deferred Rectal (Female) Exam: Deferred Back Exam: Normal Inspection, Full Range of Motion, NT Extremities: Normal Inspection, Normal Range of Motion, Non-Tender, Normal Capillary Refill, No Pedal Edema Neurological: Alert, Oriented, CN II-XII Intact, Normal Cognition, Normal Gait, Normal Reflexes, No Motor/Sensory Deficits Psychiatric: Normal Affect, Normal Mood Skin Exam: Warm, Dry, Intact, Normal Color, No Rash Lymphatic: No Adenopathy Course - Vital Signs Last Recorded V/S: Last Vital Signs Temp 37.4 C 03/11/17 15:55 Pulse 95 03/11/17 15:55 Resp 18 03/11/17 15:55 BP 143/86 H 03/11/17 15:55 Pulse Ox 91 L 03/11/17 15:55 - Orders/Labs/Meds Orders: Active Orders 24 hr Category Date Time Status RT Aerosol Therapy [RC] ASDIRECTED Care 03/11/17 12:11 Active CULTURE BLOOD [BC] Stat Lab 03/11/17 12:23 Received CULTURE BLOOD [BC] Stat Lab 03/11/17 12:28 Received Blood Culture x2 Reflex Set [OM.PC] Stat Oth 03/11/17 12:11 Ordered Labs: Laboratory Tests 03/11/17 03/11/17 03/11/17 Range/Units 12:23 12:28 12:28 WBC 3.6 L (5.0-10.0) 10^3/uL RBC 3.67 L (4.2-5.4) 10^6/uL Hgb 11.2 L (12.0-16.0) g/dL Hct 34.7 L (37.0-47.0) % MCV 94.6 (80-100) fL MCH 30.5 (27.0-34.0) pg MCHC 32.3 L (33.0-35.0) g/dL Plt Count 44 L* (150-450) 10^3/uL Neut % (Auto) 54.1 (42.2-75.2) % Lymph % (Auto) 37.5 (20.5-50.1) % [place] % (Auto) 6.7 (2-8) % Eos % (Auto) 1.1 (1.0-3.0) % Baso % (Auto) 0.6 (0.0-1.0) % D-Dimer, Quantitative (0-400) ng/mL Sodium 138 (135-145) mmol/L Potassium 3.8 (3.6-5.0) mmol/L Chloride 105 (101-111) mmol/L Carbon Dioxide 27.0 (21.0-31.0) mmol/L Anion Gap 9.8 BUN 6 L (7-18) mg/dL Creatinine 0.8 (0.6-1.3) mg/dL Est Cr Clr Drug Dosing 93.11 mL/min Estimated GFR (MDRD) > 60 BUN/Creatinine Ratio 7.50 Glucose 163 H (74-105) mg/dL Lactic Acid 3.1 H (0.5-2.2) mmol/L Calcium 8.8 (8.4-10.2) mg/dl Total Bilirubin 1.5 H (0.2-1.0) mg/dL AST 147 H (10-42) IU/L ALT 73 H (10-60) IU/L Alkaline Phosphatase 57 (42-121) IU/L B-Natriuretic Peptide 27 (0-100) pg/ml Total Protein 7.0 (6.7-8.2) g/dl Albumin 2.8 L (3.2-5.5) g/dl Globulin 4.2 Albumin/Globulin Ratio 0.67 Urine Color (YELLOW) Urine Appearance (CLEAR) Urine pH (5.0-9.0) Ur Specific [place] (1.005-1.030) Urine Protein (NEGATIVE) Urine Glucose (UA) (NEGATIVE) Urine Ketones (NEGATIVE) Urine Occult Blood (NEGATIVE) Urine Nitrite (NEGATIVE) Urine Bilirubin (NEGATIVE) Urine Urobilinogen (0.2-1.0) mg/dL Ur Leukocyte Esterase (NEGATIVE) Urine RBC /HPF Urine WBC (0-5/HPF) /HPF Ur Epithelial Cells /HPF Amorphous Sediment (0/HPF) /HPF Urine Bacteria (0-FEW/HPF) /HPF Urine Mucus /LPF Urine Opiates Screen (NEGATIVE) Ur Oxycodone Screen (NEGATIVE) Urine Methadone Screen (NEGATIVE) Ur Barbiturates Screen (NEGATIVE) U Tricyclic Antidepress (NEGATIVE) Ur Phencyclidine Scrn (NEGATIVE) Ur Amphetamine Screen (NEGATIVE) U Methamphetamines Scrn (NEGATIVE) Urine MDMA Screen (NEGATIVE) U Benzodiazepines Scrn (NEGATIVE) Urine Cocaine Screen (NEGATIVE) U Marijuana (THC) Screen (NEGATIVE) 03/11/17 03/11/1717 Range/Units 12:28 12:40 12:40 WBC (5.0-10.0) 10^3/uL RBC (4.2-5.4) 10^6/uL Hgb (12.0-16.0) g/dL Hct (37.0-47.0) % MCV (80-100) fL MCH (27.0-34.0) pg MCHC (33.0-35.0) g/dL Plt Count (150-450) 10^3/uL Neut % (Auto) (42.2-75.2) % Lymph % (Auto) (20.5-50.1) % [place] % (Auto) (2-8) % Eos % (Auto) (1.0-3.0) % Baso % (Auto) (0.0-1.0) % D-Dimer, Quantitative 811 H (0-400) ng/mL Sodium (135-145) mmol/L Potassium (3.6-5.0) mmol/L Chloride (101-111) mmol/L Carbon Dioxide (21.0-31.0) mmol/L Anion Gap BUN (7-18) mg/dL Creatinine (0.6-1.3) mg/dL Est Cr Clr Drug Dosing mL/min Estimated GFR (MDRD) BUN/Creatinine Ratio Glucose (74-105) mg/dL Lactic Acid (0.5-2.2) mmol/L Calcium (8.4-10.2) mg/dl Total Bilirubin (0.2-1.0) mg/dL AST (10-42) IU/L ALT (10-60) IU/L Alkaline Phosphatase (42-121) IU/L B-Natriuretic Peptide (0-100) pg/ml Total Protein (6.7-8.2) g/dl Albumin (3.2-5.5) g/dl Globulin Albumin/Globulin Ratio Urine Color Dark yellow (YELLOW) Urine Appearance Cloudy (CLEAR) Urine pH 6.0 (5.0-9.0) Ur Specific [place] >= 1.030 (1.005-1.030) Urine Protein 30 H (NEGATIVE) Urine Glucose (UA) Negative (NEGATIVE) Urine Ketones Trace H (NEGATIVE) Urine Occult Blood Moderate H (NEGATIVE) Urine Nitrite Negative (NEGATIVE) Urine Bilirubin Small H (NEGATIVE) Urine Urobilinogen 0.2 (0.2-1.0) mg/dL Ur Leukocyte Esterase Negative (NEGATIVE) Urine RBC 10-20 H /HPF Urine WBC 0-5 (0-5/HPF) /HPF Ur Epithelial Cells Few /HPF Amorphous Sediment Few (0/HPF) /HPF Urine Bacteria Few (0-FEW/HPF) /HPF Urine Mucus Occasional /LPF Urine Opiates Screen Negative (NEGATIVE) Ur Oxycodone Screen Negative (NEGATIVE) Urine Methadone Screen Negative (NEGATIVE) Ur Barbiturates Screen Negative (NEGATIVE) U Tricyclic Antidepress Positive H (NEGATIVE) Ur Phencyclidine Scrn Negative (NEGATIVE) Ur Amphetamine Screen Negative (NEGATIVE) U Methamphetamines Scrn Negative (NEGATIVE) Urine MDMA Screen Negative (NEGATIVE) U Benzodiazepines Scrn Negative (NEGATIVE) Urine Cocaine Screen Negative (NEGATIVE) U Marijuana (THC) Screen Positive H (NEGATIVE) Meds: Medications Discontinued Medications Generic Name Dose Route Start Last Admin Trade Name Freq PRN Reason Stop Dose Admin Albuterol/Ipratropium 3 ml 03/11/17 12:10 03/11/17 12:16 Duoneb 3.0-0.5 Mg/3 Ml NEB 03/11/17 12:11 3 ml ONETIME ONE Administration Iopamidol 100 ml 03/11/17 13:22 03/11/17 14:15 Isovue-370 (76%) IVPUSH 03/11/17 13:23 73 ml ONETIME ONE Administration - Re-Assessments/Exams Free Text/Narrative Re-Assessment/Exam: 03/11/17 13:23 Discussed lab, and x-ray results with patient. CT with contrast ordered. Departure - Departure Time of Disposition: 15:58 Disposition: DC/Tfer to Acute Hospital 02 Condition: Serious Clinical Impression: Pleural effusion, right Ascites Qualifiers: Ascites type: other type Qualified Code(s): R18.8 - Other ascites - Discharge Information Forms: Interfacility Transfer EMTALA Care Plan Goals: Discussed the patient's history, lab, x-ray and CT results with Dr. Calderon ( Hospitalist with [facility] in [place]). Dr. Calderon accepted the patient for continued evaluation and further management. The patient will be transported by [facility]. - My Orders Last 24 Hours: My Active Orders 03/11/17 12:11 RT Aerosol Therapy [RC] ASDIRECTED Blood Culture x2 Reflex Set [OM.PC] Stat 03/11/17 12:23 CULTURE BLOOD [BC] Stat 03/11/17 12:28 CULTURE BLOOD [BC] Stat - Assessment/Plan Last 24 Hours: My Active Orders 03/11/17 12:11 RT Aerosol Therapy [RC] ASDIRECTED Blood Culture x2 Reflex Set [OM.PC] Stat 03/11/17 12:23 CULTURE BLOOD [BC] Stat 03/11/17 12:28 CULTURE BLOOD [BC] Stat
--- NOTE | 2017-03-11 12:46 | CR ---
Clinical history: 41-year-old female shortness of breath. Interpretation: PA/lateral wheelchair chest radiograph abnormal. *Asymmetric large dependent subpulmonic pleural effusion occupying lower half of the right hemithorax new since recent previous chest x-ray 27 December 2016. Levi thorax unremarkable. Normal cardiac silhouette without cephalization of vascular flow, signs of alveolar edema or contrala teral left pleural effusion. No lung mass or focal lobar pneumonia in left hemithorax. Underlying mass, infiltrate or atelectasis right lung base possible.
[2017-03-11 13:01] LABS: CHLORIDE,CL 105 mmol/L (101-111); SODIUM,NA 138 mmol/L (135-145)
[2017-03-11] MEDS ORDERED: Iopamidol 755 Mg/ML 100 ML Bottle IVPUSH ONE (13:22)
--- NOTE | 2017-03-11 15:06 | CT ---
CLINICAL HISTORY: 41-year-old 200 pound female smoker with shortness of breath and huge right pleural effusion on plain chest radiograph. No known trauma or malignancies. Serum D dimer 800. SCAN TECHNIQUE: Volume acquisition of data from an emergency CT PE study obtained while the patient w as lying supine on the Siemens multislice CT scanner [facility] du ring the intravenous administration nonionic Isovue 370 contrast (5 cc/sec via injector) all data arc hived in the PACS system for storage, reformatting axial/sagittal/coronal planes and study (lung/medi astinal windows). INTERPRETATION: Abnormal. 1. Large right pleural effusion occupying over half of the volume right hemithorax with atelectasis a nd collapse of the underlying lung into the ipsilateral right hilum. 2. No parenchymal lung nodule or mass lesion and no signs of axillary, hilar or mediastinal lymphaden opathy. 3. No intraluminal filling defect or thrombus identified in the pulmonary artery circulation, i.e., l ow probability pulmonary embolism. 4. Radiographic signs of COPD right upper lobe and left lung, i.e., peribronchial "cuffing", pleural parenchymal scarring and extensive subpleural cystic/bullous lesions. Breast tissues unremarkable. 5. Normal cardiac size and configuration. No pericardial effusion. No cephalization of vascular flow or signs of alveolar edema. 6. Ascites RUQ. Gallbladder and liver (where visualized), stomach, spleen and pancreas unremarkable. No adrenal mass lesions. CONCLUSION: Huge right pleural effusion. Ascites. COPD. Low probability pulmonary embolism.
--- NOTE | 2017-03-11 15:26 | CT ---
CLINICAL HISTORY: 41-year-old female smoker who presents to the emergency department with extreme andrew rtness of breath, huge right pleural effusion, COPD and ascites. ("Low probability pulmonary embolism " on CT exam chest) No known trauma. SCAN TECHNIQUE: Volume acquisition of data from the abdomen and pelvis obtained 20 minutes after the intravenous administration nonionic Isovue 370 contrast while the patient was lying supine on the [employer] multislice scanner [place], [place]. All data archived in the PAC S system for storage, reformatting and study. INTERPRETATION: Abnormal. 1. Huge dependent right subpulmonic pleural effusion with underlying lower lobe atelectasis/collapse. 2. Intraperitoneal ascitic fluid accumulated right upper quadrant around the liver and in the depende nt pelvic cul-de-sac. 3. Liver normal size/anatomic configuration but focal area of decreased attenuation mid right lobe ne ar the gallbladder that may represent focal fatty infiltration or cyst. No other parenchymal mass les ion and no abnormal dilatation of the intra/extrahepatic biliary ducts. Normal gallbladder, stomach a nd spleen. 4. Normal midline uterus. No adnexal or ovarian mass lesions in the pelvis. No mesenteric or retroper itoneal lymphadenopathy. 5. No signs of mechanical bowel obstruction, abdominal mass lesion, or free intraperitoneal air. 6. Normal reniform size, axis and configuration bilaterally. No renal cortical mass lesion, nephrolit hiasis or obstructive uropathy. Midline urinary bladder unremarkable. 7. Multilevel mid and lower lumbar disc disease with hypertrophic reactive arthritic change. Calcific ations normal caliber abdominal aorta. No sign of aortic aneurysm or retroperitoneal periaortic disse ction. CONCLUSION: Large right pleural effusion and ascites (etiology uncertain). No signs of heart failure, pulmonary embolism, lobar pneumonia or chest/abdominal malignancy. Abnorma l lumbar spine.
[2017-03-11 15:55] VITALS: BP 143/86
== END 2017-03-11 16:25 ==
LOC: DL.ED 11:54
DX: J90 Pleural effusion, not elsewhere classified (principal); R18.8 Other ascites; J44.9 Chronic obstructive pulmonary disease, unspecified; I12.9 Hypertensive chronic kidney disease with stage 1 through stage 4 chronic kidney disease, or unspecified chronic kidney disease; E11.22 Type 2 diabetes mellitus with diabetic chronic kidney disease; N18.3 Chronic kidney disease, stage 3 (moderate); F17.210 Nicotine dependence, cigarettes, uncomplicated; Z79.899 Other long term (current) drug therapy; Z88.1 Allergy status to other antibiotic agents; Z88.2 Allergy status to sulfonamides
CPT/HCPCS: 36415; 71020; 71260; 74176; 80053; 80305; 81001; 83605; 83880; 85025; 85379; 87040; 94640; 99285; Q9967; 99284

== ENCOUNTER 2017-04-06 21:18 | Emergency (ER) | payer MEDICARE, MEDICAID ==
[2017-04-06] MEDS ORDERED: Albuterol/Ipratropium 3.0-0.5 MG/3 ML Neb Soln NEB ONE (21:38)
[2017-04-06 22:03] LABS: ANION GAP 16.4; CHLORIDE,CL 100 mmol/L (101-111); SODIUM,NA 132 mmol/L (135-145)
[2017-04-06 23:05] VITALS: BP 98/68
--- NOTE | 2017-04-06 23:34 | EDM.PDOC ---
ED HPI GENERAL MEDICAL PROBLEM - General Chief Complaint: Respiratory Problem Stated Complaint: HARD TIME BREATHING [id number] Time Seen by Provider: 04/06/17 21:30 Source of Information: Reports: Patient, Family History Limitations: Reports: No Limitations - History of Present Illness INITIAL COMMENTS - FREE TEXT/NARRATIVE: C/o SOB, achy, cough, anterior chest pain this am, radiating to back. Has not taken last few days as had been drinking. Notes hx of cirrhosis, COPD. Has be tx out last month with similar and ascities., Fluid tapped at that time. Anterior Chest Pain Score (Numeric/FACES): 7 - Related Data Allergies Allergy/AdvReac Type Severity Reaction Status Date / Time cefdinir [Cefdinir] Allergy Rash Verified 04/06/17 21:41 sulfamethoxazole Allergy Airway Verified 04/06/17 21:41 [From ] Tightness Home Meds: Home Meds QUEtiapine Fumarate [Seroquel] 200 mg PO BEDTIME 07/22/13 [History] Albuterol [Ventolin HFA] 2 puff INH Q6H PRN 08/23/13 [History] Fluticasone/Salmeterol [Advair 250-50] 1 puff INH BID 06/04/14 [History] Gabapentin [Neurontin] 1 tab PO TID 07/06/15 [History] Levothyroxine 225 mcg PO ACBREAKFAST 02/07/16 [History] Furosemide [Lasix] 20 mg PO DAILY 11/20/16 [History] Spironolactone 100 mg PO DAILY 11/20/16 [History] Albuterol Sulfate 1 each INH Q4H PRN 03/11/17 [History] Past Medical History HEENT History: Reports: Impaired Vision Other HEENT History: wears glasses Cardiovascular History: Reports: Hypertension Respiratory History: Reports: Bronchitis, Recurrent, COPD, Other (See Below) Other Respiratory History: chronic bronchitis Gastrointestinal History: Reports: Cirrhosis, GERD, Hepatitis Other Gastrointestinal History: HEP C Genitourinary History: Reports: Chronic Renal Insuffiency, Other (See Below) Other Genitourinary History: Stage 2. 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 disc disease in neck and back. Neurological History: Reports: None, Migraines Psychiatric History: Reports: Bipolar, PTSD Endocrine/Metabolic History: Reports: Diabetes, Type II, Hypothyroidism Other Endocrine/Metabolic History: "weight loss treatment for DM II" Hematologic History: Reports: None Other Hematologic History: Low plateletts. Immunologic History: Reports: None Oncologic (Cancer) History: Reports: None - Infectious Disease History Infectious Disease History: Reports: Chicken Pox, Hepatitis C - Past Surgical History Female Surgical History: Reports: Section, Tubal Ligation Musculoskeletal Surgical History: Reports: Arthroscopic Knee Social & Family History - Family History Family Medical History: Noncontributory - Tobacco Use Smoking Status *Q: Current Every Day Smoker Years of Tobacco use: 30 Packs/Tins Daily: 0.5 Used Tobacco, but Quit: No Month Tobacco Last Used: 09/26/2014 Second Hand Smoke Exposure: Yes - Caffeine Use Caffeine Use: Reports: None - Alcohol Use Days Per Week of Alcohol Use: 3 Number of Drinks Per Day: 6 Total Drinks Per Week: 18 - Recreational Drug Use Recreational Drug Use: Yes Drug Use in Last 12 Months: Yes Recreational Drug Type: Reports: Methamphetamine Other Recreational Drug Type: 16-17 years meth use. Recently has smoked THC. Recreational Drug Use Frequency: Rarely - Living Situation & Occupation Living situation: Reports: with Family Occupation: Employed ED ROS GENERAL - Review of Systems Review Of Systems: See Below Constitutional: Reports: Fever, Chills HEENT: Reports: No Symptoms Respiratory: Reports: Shortness of Breath, Pleuritic Chest Pain. Denies: Sputum Cardiovascular: Reports: Chest Pain, Lightheadedness (on admission), Palpitations GI/Abdominal: Denies: No Symptoms : Reports: No Symptoms Musculoskeletal: Reports: Other (generalized body aches) Skin: Reports: No Symptoms Neurological: Reports: No Symptoms ED EXAM, GENERAL - Physical Exam Exam: See Below Exam Limited By: No Limitations General Appearance: Alert, Mild Distress Ears: Normal External Exam, Normal TMs Nose: Normal Inspection Throat/Mouth: Normal Inspection Head: Atraumatic Neck: Normal Inspection Respiratory/Chest: Decreased Breath Sounds (absent upper right to base, fair exchange on left, ). No: Normal Breath Sounds Cardiovascular: Regular Rate, Rhythm, Tachycardia GI/Abdominal: Normal Bowel Sounds (distant upper), Distended (upepr). No: Guarding, Tender Extremities: Normal Inspection Neurological: Alert, Oriented, Normal Cognition Psychiatric: Normal Affect Skin Exam: Warm, Dry, Intact, Normal Color Course - Vital Signs Last Recorded V/S: Last Vital Signs Temp 99.3 F 04/06/17 23:03 Pulse 106 H 04/06/17 23:03 Resp 20 04/06/17 23:03 BP 98/68 04/06/17 23:03 Pulse Ox 96 04/06/17 23:03 - Orders/Labs/Meds Orders: Active Orders 24 hr Category Date Time Status EKG 12 Lead [EKG Documentation Completion] [RC] URGENT Care 04/06/17 21:39 Active RT Aerosol Therapy [RC] ASDIRECTED Care 04/06/17 21:38 Active Labs: Laboratory Tests 04/06/17 04/06/17 04/06/17 Range/Units 21:30 21:30 21:30 WBC 3.9 L (5.0-10.0) 10^3/uL RBC 3.57 L (4.2-5.4) 10^6/uL Hgb 11.4 L (12.0-16.0) g/dL Hct 33.3 L (37.0-47.0) % MCV 93.3 (80-100) fL MCH 31.9 (27.0-34.0) pg MCHC 34.2 (33.0-35.0) g/dL Plt Count 20 L* (150-450) 10^3/uL Neut % (Auto) 44.8 (42.2-75.2) % Lymph % (Auto) 47.7 (20.5-50.1) % [place] % (Auto) 4.6 (2-8) % Eos % (Auto) 2.6 (1.0-3.0) % Baso % (Auto) 0.3 (0.0-1.0) % PT 13.2 H (9.0-12.0) SEC INR 1.3 H (0.9-1.2) D-Dimer, Quantitative 558 H (0-400) ng/mL Sodium 132 L (135-145) mmol/L Potassium 3.4 L (3.6-5.0) mmol/L Chloride 100 L (101-111) mmol/L Carbon Dioxide 19.0 L (21.0-31.0) mmol/L Anion Gap 16.4 BUN 6 L (7-18) mg/dL Creatinine 0.8 (0.6-1.3) mg/dL Est Cr Clr Drug Dosing 91.47 mL/min Estimated GFR (MDRD) > 60 BUN/Creatinine Ratio 7.50 Glucose 211 H (74-105) mg/dL Calcium 8.8 (8.4-10.2) mg/dl Total Bilirubin 0.6 (0.2-1.0) mg/dL AST 131 H (10-42) IU/L ALT 61 H (10-60) IU/L Alkaline Phosphatase 66 (42-121) IU/L Troponin I < 0.02 (0.00-0.02) ng/ml B-Natriuretic Peptide 11 (0-100) pg/ml Total Protein 6.4 L (6.7-8.2) g/dl Albumin 2.7 L (3.2-5.5) g/dl Globulin 3.7 Albumin/Globulin Ratio 0.73 Amylase 44 (28-100) U/L Lipase 43 (22-51) U/L Urine Color (YELLOW) Urine Appearance (CLEAR) Urine pH (5.0-9.0) Ur Specific [place] (1.005-1.030) Urine Protein (NEGATIVE) Urine Glucose (UA) (NEGATIVE) Urine Ketones (NEGATIVE) Urine Occult Blood (NEGATIVE) Urine Nitrite (NEGATIVE) Urine Bilirubin (NEGATIVE) Urine Urobilinogen (0.2-1.0) mg/dL Ur Leukocyte Esterase (NEGATIVE) Urine RBC /HPF Urine WBC (0-5/HPF) /HPF Ur Epithelial Cells /HPF Calcium Oxalate Crystal /HPF Urine Bacteria (0-FEW/HPF) /HPF Urinalysis Comment Urine Opiates Screen (NEGATIVE) Ur Oxycodone Screen (NEGATIVE) Urine Methadone Screen (NEGATIVE) Ur Barbiturates Screen (NEGATIVE) U Tricyclic Antidepress (NEGATIVE) Ur Phencyclidine Scrn (NEGATIVE) Ur Amphetamine Screen (NEGATIVE) U Methamphetamines Scrn (NEGATIVE) Urine MDMA Screen (NEGATIVE) U Benzodiazepines Scrn (NEGATIVE) Urine Cocaine Screen (NEGATIVE) U Marijuana (THC) Screen (NEGATIVE) 04/06/17 04/06/17 Range/Units 22:47 22:47 WBC (5.0-10.0) 10^3/uL RBC (4.2-5.4) 10^6/uL Hgb (12.0-16.0) g/dL Hct (37.0-47.0) % MCV (80-100) fL MCH (27.0-34.0) pg MCHC (33.0-35.0) g/dL Plt Count (150-450) 10^3/uL Neut % (Auto) (42.2-75.2) % Lymph % (Auto) (20.5-50.1) % Nash % (Auto) (2-8) % Eos % (Auto) (1.0-3.0) % Baso % (Auto) (0.0-1.0) % PT (9.0-12.0) SEC INR (0.9-1.2) D-Dimer, Quantitative (0-400) ng/mL Sodium (135-145) mmol/L Potassium (3.6-5.0) mmol/L Chloride (101-111) mmol/L Carbon Dioxide (21.0-31.0) mmol/L Anion Gap BUN (7-18) mg/dL Creatinine (0.6-1.3) mg/dL Est Cr Clr Drug Dosing mL/min Estimated GFR (MDRD) BUN/Creatinine Ratio Glucose (74-105) mg/dL Calcium (8.4-10.2) mg/dl Total Bilirubin (0.2-1.0) mg/dL AST (10-42) IU/L ALT (10-60) IU/L Alkaline Phosphatase (42-121) IU/L Troponin I (0.00-0.02) ng/ml B-Natriuretic Peptide (0-100) pg/ml Total Protein (6.7-8.2) g/dl Albumin (3.2-5.5) g/dl Globulin Albumin/Globulin Ratio Amylase (28-100) U/L Lipase (22-51) U/L Urine Color Dark yellow (YELLOW) Urine Appearance Slightly cloudy (CLEAR) Urine pH 5.5 (5.0-9.0) Ur Specific [place] >= 1.030 (1.005-1.030) Urine Protein Negative (NEGATIVE) Urine Glucose (UA) Negative (NEGATIVE) Urine Ketones 15 H (NEGATIVE) Urine Occult Blood Large H (NEGATIVE) Urine Nitrite Positive H (NEGATIVE) Urine Bilirubin Moderate H (NEGATIVE) Urine Urobilinogen 1.0 (0.2-1.0) mg/dL Ur Leukocyte Esterase Negative (NEGATIVE) Urine RBC 0-5 /HPF Urine WBC 0-5 (0-5/HPF) /HPF Ur Epithelial Cells Moderate H /HPF Calcium Oxalate Crystal Few H /HPF Urine Bacteria Moderate H (0-FEW/HPF) /HPF Urinalysis Comment Urine Opiates Screen Negative (NEGATIVE) Ur Oxycodone Screen Negative (NEGATIVE) Urine Methadone Screen Negative (NEGATIVE) Ur Barbiturates Screen Negative (NEGATIVE) U Tricyclic Antidepress Positive H (NEGATIVE) Ur Phencyclidine Scrn Negative (NEGATIVE) Ur Amphetamine Screen Negative (NEGATIVE) U Methamphetamines Scrn Negative (NEGATIVE) Urine MDMA Screen Negative (NEGATIVE) U Benzodiazepines Scrn Negative (NEGATIVE) Urine Cocaine Screen Negative (NEGATIVE) U Marijuana (THC) Screen Positive H (NEGATIVE) Meds: Medications Discontinued Medications Generic Name Dose Route Start Last Admin Trade Name Freq PRN Reason Stop Dose Admin Albuterol/Ipratropium 3 ml 04/06/17 21:38 04/06/17 21:50 Duoneb 3.0-0.5 Mg/3 Ml NEB 04/06/17 21:39 3 ml ONETIME ONE Administration - Re-Assessments/Exams Free Text/Narrative Re-Assessment/Exam: 04/07/17 02:37 reports pain resolved after neb. Lungs sounds unchanged. Departure - Departure Time of Disposition: 00:05 Disposition: DC/Tfer to Acute Hospital 02 Condition: Fair Clinical Impression: Alcoholic cirrhosis of liver with ascites, Pleural effusion, right, Thrombocytopenia RML pneumonia Qualifiers: Pneumonia type: due to unspecified organism Qualified Code(s): J18.1 - Lobar pneumonia, unspecified organism UTI (urinary tract infection) Qualifiers: Urinary tract infection type: acute cystitis Hematuria presence: with hematuria Qualified Code(s): N30.01 - Acute cystitis with hematuria - Discharge Information Referrals: PCP,Unobtain [Primary Care Provider] - Forms: ED Department Discharge - My Orders Last 24 Hours: My Active Orders 04/06/17 21:38 RT Aerosol Therapy [RC] ASDIRECTED 04/06/17 21:39 EKG 12 Lead [EKG Documentation Completion] [RC] URGENT - Assessment/Plan Last 24 Hours: My Active Orders 04/06/17 21:38 RT Aerosol Therapy [RC] ASDIRECTED 04/06/17 21:39 EKG 12 Lead [EKG Documentation Completion] [RC] URGENT
--- NOTE | 2017-04-08 15:41 | EKG ---
04/06/2017 - YIMI PATTON - This 12-lead EKG shows a sinus tachycardia with a ventricular rate of 127. Normal axis. No acute ST-segment or T-wave changes, and wandering baseline in the limb leads. [facility] /[id number]
== END 2017-04-07 00:09 ==
LOC: DL.ED 21:18
DX: J18.9 Pneumonia, unspecified organism (principal); J90 Pleural effusion, not elsewhere classified; K70.31 Alcoholic cirrhosis of liver with ascites; D69.6 Thrombocytopenia, unspecified; N30.01 Acute cystitis with hematuria; I10 Essential (primary) hypertension; K21.9 Gastro-esophageal reflux disease without esophagitis; E11.9 Type 2 diabetes mellitus without complications; E03.9 Hypothyroidism, unspecified; F31.9 Bipolar disorder, unspecified; F17.210 Nicotine dependence, cigarettes, uncomplicated; Z79.899 Other long term (current) drug therapy; Z88.2 Allergy status to sulfonamides; Z88.1 Allergy status to other antibiotic agents
CPT/HCPCS: 36415; 71045; 80053; 80305; 81001; 82150; 83690; 83880; 84484; 85025; 85379; 85610; 87804; 93005; 93010; 94640; 99285

== ENCOUNTER 2017-08-12 14:37 | Emergency (ER) | payer MEDICARE, MEDICAID ==
[2017-08-12] MEDS ORDERED: Sodium Chloride 0.9% 1,000 ML IV ONE (15:23)
[2017-08-12] MEDS ORDERED: Morphine 2 MG/ML Syringe IVPUSH ONE (15:39)
--- NOTE | 2017-08-12 15:39 | EDM.PDOC ---
ED HPI GENERAL MEDICAL PROBLEM - General Chief Complaint: Abdominal Pain Stated Complaint: [id number] PAIN IN STOMACH TO BACK Time Seen by Provider: 08/12/17 15:25 Source of Information: Reports: Patient History Limitations: Reports: No Limitations - History of Present Illness INITIAL COMMENTS - FREE TEXT/NARRATIVE: This 42 yo female patient reports to the ED with right lower abdominal pain that radiates to her right flank. The patient has a history of kidney stones. The patient reports her symptoms started when she got up this morning at about 0800 with nausea, but began to have increased pain at about 1000. The patient reports that she has not taken anything for temporary symptom relief. Onset: Today Onset Date: 08/12/17 Onset Time: 08:00 Duration: Constant, Getting Worse Location: Reports: Abdomen (RLQ), Back (right flank) Quality: Reports: Ache, Sharp, Stabbing Severity: Severe Improves with: Reports: None Worsens with: Reports: None Associated Symptoms: Reports: Nausea/Vomiting Right Abdominal Pain Score (Numeric/FACES): 10 - Related Data Allergies Allergy/AdvReac Type Severity Reaction Status Date / Time cefdinir [Cefdinir] Allergy Rash Verified 04/06/17 21:41 sulfamethoxazole Allergy Airway Verified 04/06/17 21:41 [From Septra] Tightness Home Meds: Home Meds QUEtiapine Fumarate [Seroquel] 200 mg PO BEDTIME 07/22/13 [History] Albuterol [Ventolin HFA] 2 puff INH Q6H PRN 08/23/13 [History] Fluticasone/Salmeterol [Advair 250-50] 1 puff INH BID 06/04/14 [History] Gabapentin [Neurontin] 1 tab PO TID 07/06/15 [History] Levothyroxine 225 mcg PO ACBREAKFAST 02/07/16 [History] Furosemide [Lasix] 20 mg PO DAILY 11/20/16 [History] Spironolactone 100 mg PO DAILY 11/20/16 [History] Albuterol Sulfate 1 each INH Q4H PRN 03/11/17 [History] Past Medical History HEENT History: Reports: Impaired Vision Other HEENT History: wears glasses Cardiovascular History: Reports: Hypertension Respiratory History: Reports: Bronchitis, Recurrent, COPD, Other (See Below) Other Respiratory History: chronic bronchitis Gastrointestinal History: Reports: Cirrhosis, GERD, Hepatitis Other Gastrointestinal History: HEP C Genitourinary History: Reports: Chronic Renal Insuffiency, Other (See Below) Other Genitourinary History: Stage 2. 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 disc disease in neck and back. Neurological History: Reports: None, Migraines Psychiatric History: Reports: Bipolar, PTSD Endocrine/Metabolic History: Reports: Diabetes, Type II, Hypothyroidism Other Endocrine/Metabolic History: "weight loss treatment for DM II" Hematologic History: Reports: None Other Hematologic History: Low plateletts. Immunologic History: Reports: None Oncologic (Cancer) History: Reports: None - Infectious Disease History Infectious Disease History: Reports: Chicken Pox, Hepatitis C - Past Surgical History Female Surgical History: Reports: Section, Tubal Ligation Musculoskeletal Surgical History: Reports: Arthroscopic Knee Social & Family History - Family History Family Medical History: Noncontributory - Caffeine Use Caffeine Use: Reports: None - Living Situation & Occupation Living situation: Reports: with Family Occupation: Employed ED ROS GENERAL - Review of Systems Review Of Systems: ROS reveals no pertinent complaints other than HPI. ED EXAM, RENAL/ - Physical Exam Exam: See Below Exam Limited By: No Limitations General Appearance: Alert, WD/WN, Moderate Distress Eye Exam: Bilateral Eye: EOMI, Normal Inspection, PERRL Ears: Normal External Exam, Normal Canal, Hearing Grossly Normal, Normal TMs Nose: Normal Inspection, Normal Mucosa, No Blood Throat/Mouth: Normal Inspection, Normal Lips, Normal Teeth, Normal Gums, Normal Oropharynx, Normal Voice, No Airway Compromise Head: Atraumatic, Normocephalic Neck: Normal Inspection, Supple, Non-Tender, Full Range of Motion Respiratory/Chest: No Respiratory Distress, Lungs Clear, Normal Breath Sounds, No Accessory Muscle Use, Chest Non-Tender Cardiovascular: Normal Peripheral Pulses, Regular Rate, Rhythm, No Edema, No Gallop, No JVD, No Murmur, No Rub GI/Abdominal: Normal Bowel Sounds, Tender (Right lower quadrant ) (Female) Exam: Deferred Rectal (Female) Exam: Deferred Back Exam: CVA Tenderness (R) Extremities: Normal Inspection, Normal Range of Motion, Non-Tender, Normal Capillary Refill, No Pedal Edema Neurological: Alert, Oriented, CN II-XII Intact, Normal Cognition, Normal Gait, Normal Reflexes, No Motor/Sensory Deficits Psychiatric: Normal Affect, Normal Mood Skin Exam: Warm, Dry, Intact, Normal Color, No Rash Lymphatic: No Adenopathy Course - Vital Signs Last Recorded V/S: Last Vital Signs Temp 36.9 C 08/12/17 15:06 Pulse 72 08/12/17 15:06 Resp 20 08/12/17 15:06 BP 101/62 08/12/17 16:08 Pulse Ox 100 08/12/17 15:06 - Orders/Labs/Meds Orders: Active Orders 24 hr Category Date Time Status Abdomen Pelvis w Cont [CT] Urgent Exams 08/12/17 16:40 Taken Labs: Laboratory Tests 08/12/17 08/12/17 08/12/17 Range/Units 15:14 15:35 15:35 WBC 7.9 (5.0-10.0) 10^3/uL RBC 3.76 L (4.2-5.4) 10^6/uL Hgb 11.5 L (12.0-16.0) g/dL Hct 34.1 L (37.0-47.0) % MCV 90.7 (80-100) fL MCH 30.6 (27.0-34.0) pg MCHC 33.7 (33.0-35.0) g/dL Plt Count 64 L (150-450) 10^3/uL Neut % (Auto) 76.9 H (42.2-75.2) % Lymph % (Auto) 16.7 L (20.5-50.1) % [place] % (Auto) 4.6 (2-8) % Eos % (Auto) 1.5 (1.0-3.0) % Baso % (Auto) 0.3 (0.0-1.0) % Sodium 136 (135-145) mmol/L Potassium 3.9 (3.6-5.0) mmol/L Chloride 103 (101-111) mmol/L Carbon Dioxide 24.0 (21.0-31.0) mmol/L Anion Gap 12.9 BUN 9 (7-18) mg/dL Creatinine 1.0 (0.6-1.3) mg/dL Est Cr Clr Drug Dosing 72.42 mL/min Estimated GFR (MDRD) > 60 BUN/Creatinine Ratio 9.00 Glucose 141 H (74-105) mg/dL Calcium 9.2 (8.4-10.2) mg/dl Total Bilirubin 0.7 (0.2-1.0) mg/dL AST 40 (10-42) IU/L ALT 25 (10-60) IU/L Alkaline Phosphatase 77 (42-121) IU/L Total Protein 6.5 L (6.7-8.2) g/dl Albumin 3.0 L (3.2-5.5) g/dl Globulin 3.5 Albumin/Globulin Ratio 0.86 Urine Color Yellow (YELLOW) Urine Appearance Slightly cloudy (CLEAR) Urine pH 7.0 (5.0-9.0) Ur Specific [place] 1.015 (1.005-1.030) Urine Protein Negative (NEGATIVE) Urine Glucose (UA) Negative (NEGATIVE) Urine Ketones Negative (NEGATIVE) Urine Occult Blood Negative (NEGATIVE) Urine Nitrite Negative (NEGATIVE) Urine Bilirubin Negative (NEGATIVE) Urine Urobilinogen 0.2 (0.2-1.0) mg/dL Ur Leukocyte Esterase Trace H (NEGATIVE) Urine RBC 0-5 /HPF Urine WBC 0-5 (0-5/HPF) /HPF Ur Epithelial Cells Moderate H /HPF Urine Bacteria Few (0-FEW/HPF) /HPF Meds: Medications Discontinued Medications Generic Name Dose Route Start Last Admin Trade Name Juan C PRN Reason Stop Dose Admin Hydrocodone Bitart/Acetaminophen 1 tab 08/12/17 17:23 [place] 325-10 Mg PO 08/12/17 17:24 ONETIME ONE Sodium Chloride 1,000 mls @ 999 mls/hr 08/12/17 15:23 08/12/17 15:39 Normal Saline IV 08/12/17 16:23 999 mls/hr .BOLUS ONE Administration Iopamidol 75 ml 08/12/17 16:40 08/12/17 16:49 Isovue-300 (61%) IVPUSH 08/12/17 16:41 75 ml ONETIME ONE Administration Morphine Sulfate 2 mg 08/12/17 15:39 08/12/17 15:46 Morphine IVPUSH 08/12/17 15:40 2 mg ONETIME ONE Administration Ondansetron HCl 4 mg 08/12/17 15:47 08/12/17 16:07 Zofran IV 08/12/17 15:48 4 mg ONETIME ONE Administration Departure - Departure Time of Disposition: 17:25 Disposition: Home, Self-Care 01 Condition: Fair Clinical Impression: Ruptured ovarian cyst - Discharge Information Instructions: Ovarian Cyst, [id number] Referrals: Moisés Banks NP [Primary Care Provider] - Forms: ED Department Discharge Care Plan Goals: The patient was advised of the examination, lab and CT results during the visit. The patient was given IV fluids, IV Morphine and oral [place] while in the ED. The patient was discharged with a script for [place] (5/325) #8 to take 1 by mouth every 6 hours as needed for pain. If the patient has any additional symptoms or concerns, the patient should either follow-up with her primary care facility or return to the emergency department. - My Orders Last 24 Hours: My Active Orders 08/12/17 16:40 Abdomen Pelvis w Cont [CT] Urgent - Assessment/Plan Last 24 Hours: My Active Orders 08/12/17 16:40 Abdomen Pelvis w Cont [CT] Urgent
[2017-08-12] MEDS ORDERED: Ondansetron 4 MG/2 ML SDV IV ONE (15:47)
[2017-08-12 16:02] LABS: CHLORIDE,CL 103 mmol/L (101-111); SODIUM,NA 136 mmol/L (135-145)
[2017-08-12 16:09] VITALS: BP 101/62
[2017-08-12] MEDS ORDERED: Iopamidol 612 MG/ML 75 ML Bottle IVPUSH ONE (16:40)
[2017-08-12] MEDS ORDERED: Acetaminophen/HYDROcodone 325-10 MG Tab PO ONE (17:23)
--- NOTE | 2017-08-12 17:29 | CT ---
Clinical history: 42-year-old female right lower quadrant pain. This afebrile patient has a normal (7 000) WBC. No hematuria. Scan technique: Volume acquisition of data from the abdomen and pelvis obtained during the intravenou s administration of nonionic Isovue contrast while lying supine on the Siemens multislice scanner [facility]. All data archived in the PACS system for storage, reforma tting and study. Interpretation: Abnormal. 1. Ovarian cysts (largest the right lower quadrant measures 2.9 cm diameter) and some free fluid in t he pelvis on the left. Rupture? 2. Distended gallbladder right upper quadrant with trace of surrounding fluid but normal thin wall an d no calcified stones. 3. Multiple tiny punctate calcification calyces upper/mid/lower pole left kidney (rotated contralater al right kidney without stones but subtle pyelocaliectasis). Phleboliths lower right pelvis. 4. Liver, stomach, spleen, pancreas and adrenal glands unremarkable. Appendix not seen. 5. Normal uterus right of midline. Symmetric distended normal appearing urinary bladder. 6. No other pelvic or abdominal mass lesion. No inflammatory "dirty" peritoneal fat, signs of mechani flor bowel obstruction or free air. 7. Normal heart. Lung bases clear. Multilevel mid and lower lumbar disc disease with chronic arthriti c changes. Normal aorta. CONCLUSION: Probable ovarian cyst rupture (pelvic fluid). Nephrolithiasis left kidney.
== END 2017-08-12 17:35 | disposition home or self-care (01) ==
LOC: DL.ED 14:37
DX: N83.201 Unspecified ovarian cyst, right side (principal); I12.9 Hypertensive chronic kidney disease with stage 1 through stage 4 chronic kidney disease, or unspecified chronic kidney disease; N18.2 Chronic kidney disease, stage 2 (mild); E11.22 Type 2 diabetes mellitus with diabetic chronic kidney disease; Z88.8 Allergy status to other drugs, medicaments and biological substances; Z88.2 Allergy status to sulfonamides; Z79.899 Other long term (current) drug therapy
CPT/HCPCS: 36415; 74177; 80053; 81001; 85025; 96361; 96374; 96375; 99284; A9270; J2270; J2405; J7030; Q9967

== ENCOUNTER 2017-08-30 18:05 | Emergency (ER) | payer MEDICARE, MEDICAID ==
--- NOTE | 2017-08-30 18:18 | EDM.PDOC ---
<Sp Jolly - Last Filed: 08/30/17 18:42> ED HPI GENERAL MEDICAL PROBLEM - General Chief Complaint: Chest Pain Stated Complaint: [id number] CHEST PAIN SOB Time Seen by Provider: 08/30/17 18:17 Source of Information: Reports: Patient, RN, RN Notes Reviewed History Limitations: Reports: No Limitations - History of Present Illness INITIAL COMMENTS - FREE TEXT/NARRATIVE: Arrives to ER by POV with c/o chest pain x4 days. Pt was seen in clinic for the pain, but was sent home. Denies cough, or edema. Admits to nausea (chronic), and pain radiating to left shoulder. Onset Date: 08/26/17 Duration: Constant Location: Reports: Chest Quality: Reports: Ache, Pressure Severity: Moderate Improves with: Reports: None Worsens with: Reports: None Bilateral Upper Chest Pain Score (Numeric/FACES): 8 - Related Data Allergies Allergy/AdvReac Type Severity Reaction Status Date / Time cefdinir [Cefdinir] Allergy Rash Verified 04/06/17 21:41 sulfamethoxazole Allergy Airway Verified 04/06/17 21:41 [From [facility]] Tightness Home Meds: Home Meds QUEtiapine Fumarate [Seroquel] 200 mg PO BEDTIME 07/22/13 [History] Albuterol [Ventolin HFA] 2 puff INH Q6H PRN 08/23/13 [History] Fluticasone/Salmeterol [Advair 250-50] 1 puff INH BID 06/04/14 [History] Gabapentin [Neurontin] 1 tab PO TID 07/06/15 [History] Levothyroxine 225 mcg PO ACBREAKFAST 02/07/16 [History] Furosemide [Lasix] 20 mg PO DAILY 11/20/16 [History] Spironolactone 100 mg PO DAILY 11/20/16 [History] Albuterol Sulfate 1 each INH Q4H PRN 03/11/17 [History] Past Medical History HEENT History: Reports: Impaired Vision Other HEENT History: wears glasses Cardiovascular History: Reports: Hypertension Respiratory History: Reports: Bronchitis, Recurrent, COPD, Other (See Below) Other Respiratory History: chronic bronchitis Gastrointestinal History: Reports: Cirrhosis, GERD, Hepatitis Other Gastrointestinal History: HEP C Genitourinary History: Reports: Chronic Renal Insuffiency, Other (See Below) Other Genitourinary History: Stage 2. 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 disc disease in neck and back. Neurological History: Reports: None, Migraines Psychiatric History: Reports: Bipolar, PTSD Endocrine/Metabolic History: Reports: Diabetes, Type II, Hypothyroidism Other Endocrine/Metabolic History: "weight loss treatment for DM II" Hematologic History: Reports: None Other Hematologic History: Low plateletts. Immunologic History: Reports: None Oncologic (Cancer) History: Reports: None - Infectious Disease History Infectious Disease History: Reports: Chicken Pox, Hepatitis C - Past Surgical History Female Surgical History: Reports: Section, Tubal Ligation Musculoskeletal Surgical History: Reports: Arthroscopic Knee Social & Family History - Family History Family Medical History: Noncontributory - Caffeine Use Caffeine Use: Reports: None - Living Situation & Occupation Living situation: Reports: with Family Occupation: Employed ED ROS GENERAL - Review of Systems Review Of Systems: ROS reveals no pertinent complaints other than HPI. EKG INTERPRETATION EKG Date: 08/30/17 Time: 18:22 Rhythm: NSR Rate (Beats/Min): 65 Wylie: Normal P-Wave: Present QRS: Normal ST-T: Normal QT: Normal Comparison: NA - No Prior EKG Course - Vital Signs Last Recorded V/S: Last Vital Signs Temp 37.3 C 08/30/17 18:15 Pulse 72 08/30/17 18:15 Resp 16 08/30/17 18:15 BP 80/59 L 08/30/17 18:15 Pulse Ox 100 08/30/17 18:15 - Orders/Labs/Meds Orders: Active Orders 24 hr Category Date Time Status EKG 12 Lead [EKG Documentation Completion] [RC] STAT Care 08/30/17 18:19 Active Peripheral IV Care [RC] . DIRECTED Care 08/30/17 18:20 Active DRUG SCREEN URINE BIORAD [URCHEM] Stat Lab 08/30/17 18:20 Ordered HCG QUALITATIVE,URINE [URCHEM] Stat Lab 08/30/17 18:19 Ordered UA W/MICROSCOPIC [URIN] Stat Lab 08/30/17 18:19 Ordered LORazepam [Ativan] Med 08/30/17 19:21 Once 0.5 mg PO ONETIME ONE Sodium Chloride 0.9% [Saline Flush] Med 08/30/17 18:20 Active 10 ml FLUSH ASDIRECTED PRN Peripheral IV Insertion Adult [OM.PC] Stat Oth 08/30/17 18:19 Ordered Medication Orders Sodium Chloride (Saline Flush) 10 ml FLUSH ASDIRECTED PRN PRN Reason: Keep Vein Open Last Admin: 08/30/17 19:01 Dose: 10 ml Labs: Laboratory Tests 08/30/17 08/30/17 08/30/17 Range/Units 18:19 18:19 18:20 WBC (5.0-10.0) 10^3/uL RBC (4.2-5.4) 10^6/uL Hgb (12.0-16.0) g/dL Hct (37.0-47.0) % MCV (80-100) fL MCH (27.0-34.0) pg MCHC (33.0-35.0) g/dL Plt Count (150-450) 10^3/uL Neut % (Auto) (42.2-75.2) % Lymph % (Auto) (20.5-50.1) % Dawes % (Auto) (2-8) % Eos % (Auto) (1.0-3.0) % Baso % (Auto) (0.0-1.0) % PT (9.0-12.0) SEC INR (0.9-1.2) APTT (22.0-34.0) SEC D-Dimer, Quantitative (0-400) ng/mL Sodium (135-145) mmol/L Potassium (3.6-5.0) mmol/L Chloride (101-111) mmol/L Carbon Dioxide (21.0-31.0) mmol/L Anion Gap BUN (7-18) mg/dL Creatinine (0.6-1.3) mg/dL Est Cr Clr Drug Dosing mL/min Estimated GFR (MDRD) BUN/Creatinine Ratio Glucose (74-105) mg/dL Calcium (8.4-10.2) mg/dl Total Bilirubin (0.2-1.0) mg/dL AST (10-42) IU/L ALT (10-60) IU/L Alkaline Phosphatase (42-121) IU/L Ammonia (11-35) umol/L Troponin I (0.00-0.02) ng/ml B-Natriuretic Peptide (0-100) pg/ml Total Protein (6.7-8.2) g/dl Albumin (3.2-5.5) g/dl Globulin Albumin/Globulin Ratio Amylase (28-100) U/L Lipase (22-51) U/L Urine Color Yellow (YELLOW) Urine Appearance Slightly cloudy (CLEAR) Urine pH 7.0 (5.0-9.0) Ur Specific [place] 1.015 (1.005-1.030) Urine Protein Negative (NEGATIVE) Urine Glucose (UA) Negative (NEGATIVE) Urine Ketones Negative (NEGATIVE) Urine Occult Blood Negative (NEGATIVE) Urine Nitrite Negative (NEGATIVE) Urine Bilirubin Negative (NEGATIVE) Urine Urobilinogen 1.0 (0.2-1.0) mg/dL Ur Leukocyte Esterase Negative (NEGATIVE) Urine RBC 0-5 /HPF Urine WBC 0-5 (0-5/HPF) /HPF Ur Epithelial Cells Few /HPF Urine Bacteria Rare (0-FEW/HPF) /HPF Urine Mucus Rare /LPF Urine HCG, Qual Negative Urine Opiates Screen Negative (NEGATIVE) Ur Oxycodone Screen Negative (NEGATIVE) Urine Methadone Screen Negative (NEGATIVE) Ur Barbiturates Screen Negative (NEGATIVE) U Tricyclic Antidepress Negative (NEGATIVE) Ur Phencyclidine Scrn Negative (NEGATIVE) Ur Amphetamine Screen Negative (NEGATIVE) U Methamphetamines Scrn Negative (NEGATIVE) Urine MDMA Screen Negative (NEGATIVE) U Benzodiazepines Scrn Negative (NEGATIVE) Urine Cocaine Screen Negative (NEGATIVE) U Marijuana (THC) Screen Positive H (NEGATIVE) Ethyl Alcohol mg/dL 08/30/17 08/30/17 08/30/17 Range/Units 18:35 18:35 18:35 WBC 4.6 L (5.0-10.0) 10^3/uL RBC 3.93 L (4.2-5.4) 10^6/uL Hgb 12.3 (12.0-16.0) g/dL Hct 35.6 L (37.0-47.0) % MCV 90.6 (80-100) fL MCH 31.3 (27.0-34.0) pg MCHC 34.6 (33.0-35.0) g/dL Plt Count 62 L (150-450) 10^3/uL Neut % (Auto) 52.6 (42.2-75.2) % Lymph % (Auto) 37.6 (20.5-50.1) % Dawes % (Auto) 6.1 (2-8) % Eos % (Auto) 3.3 H (1.0-3.0) % Baso % (Auto) 0.4 (0.0-1.0) % PT 11.6 (9.0-12.0) SEC INR 1.2 (0.9-1.2) APTT 28.5 (22.0-34.0) SEC D-Dimer, Quantitative (0-400) ng/mL Sodium 137 (135-145) mmol/L Potassium 3.4 L (3.6-5.0) mmol/L Chloride 103 (101-111) mmol/L Carbon Dioxide 25.0 (21.0-31.0) mmol/L Anion Gap 12.4 BUN 8 (7-18) mg/dL Creatinine 0.9 (0.6-1.3) mg/dL Est Cr Clr Drug Dosing 80.47 mL/min Estimated GFR (MDRD) > 60 BUN/Creatinine Ratio 8.88 Glucose 111 H (74-105) mg/dL Calcium 9.0 (8.4-10.2) mg/dl Total Bilirubin 1.2 H (0.2-1.0) mg/dL AST 44 H (10-42) IU/L ALT 29 (10-60) IU/L Alkaline Phosphatase 74 (42-121) IU/L Ammonia (11-35) umol/L Troponin I < 0.02 (0.00-0.02) ng/ml B-Natriuretic Peptide 29 (0-100) pg/ml Total Protein 7.1 (6.7-8.2) g/dl Albumin 3.4 (3.2-5.5) g/dl Globulin 3.7 Albumin/Globulin Ratio 0.92 Amylase 49 (28-100) U/L Lipase 38 (22-51) U/L Urine Color (YELLOW) Urine Appearance (CLEAR) Urine pH (5.0-9.0) Ur Specific [place] (1.005-1.030) Urine Protein (NEGATIVE) Urine Glucose (UA) (NEGATIVE) Urine Ketones (NEGATIVE) Urine Occult Blood (NEGATIVE) Urine Nitrite (NEGATIVE) Urine Bilirubin (NEGATIVE) Urine Urobilinogen (0.2-1.0) mg/dL Ur Leukocyte Esterase (NEGATIVE) Urine RBC /HPF Urine WBC (0-5/HPF) /HPF Ur Epithelial Cells /HPF Urine Bacteria (0-FEW/HPF) /HPF Urine Mucus /LPF Urine HCG, Qual Urine Opiates Screen (NEGATIVE) Ur Oxycodone Screen (NEGATIVE) Urine Methadone Screen (NEGATIVE) Ur Barbiturates Screen (NEGATIVE) U Tricyclic Antidepress (NEGATIVE) Ur Phencyclidine Scrn (NEGATIVE) Ur Amphetamine Screen (NEGATIVE) U Methamphetamines Scrn (NEGATIVE) Urine MDMA Screen (NEGATIVE) U Benzodiazepines Scrn (NEGATIVE) Urine Cocaine Screen (NEGATIVE) U Marijuana (THC) Screen (NEGATIVE) Ethyl Alcohol < 5 mg/dL 08/30/17 08/30/17 Range/Units 18:35 18:35 WBC (5.0-10.0) 10^3/uL RBC (4.2-5.4) 10^6/uL Hgb (12.0-16.0) g/dL Hct (37.0-47.0) % MCV (80-100) fL MCH (27.0-34.0) pg MCHC (33.0-35.0) g/dL Plt Count (150-450) 10^3/uL Neut % (Auto) (42.2-75.2) % Lymph % (Auto) (20.5-50.1) % Dawes % (Auto) (2-8) % Eos % (Auto) (1.0-3.0) % Baso % (Auto) (0.0-1.0) % PT (9.0-12.0) SEC INR (0.9-1.2) APTT (22.0-34.0) SEC D-Dimer, Quantitative < 100 (0-400) ng/mL Sodium (135-145) mmol/L Potassium (3.6-5.0) mmol/L Chloride (101-111) mmol/L Carbon Dioxide (21.0-31.0) mmol/L Anion Gap BUN (7-18) mg/dL Creatinine (0.6-1.3) mg/dL Est Cr Clr Drug Dosing mL/min Estimated GFR (MDRD) BUN/Creatinine Ratio Glucose (74-105) mg/dL Calcium (8.4-10.2) mg/dl Total Bilirubin (0.2-1.0) mg/dL AST (10-42) IU/L ALT (10-60) IU/L Alkaline Phosphatase (42-121) IU/L Ammonia 21 (11-35) umol/L Troponin I (0.00-0.02) ng/ml B-Natriuretic Peptide (0-100) pg/ml Total Protein (6.7-8.2) g/dl Albumin (3.2-5.5) g/dl Globulin Albumin/Globulin Ratio Amylase (28-100) U/L Lipase (22-51) U/L Urine Color (YELLOW) Urine Appearance (CLEAR) Urine pH (5.0-9.0) Ur Specific [place] (1.005-1.030) Urine Protein (NEGATIVE) Urine Glucose (UA) (NEGATIVE) Urine Ketones (NEGATIVE) Urine Occult Blood (NEGATIVE) Urine Nitrite (NEGATIVE) Urine Bilirubin (NEGATIVE) Urine Urobilinogen (0.2-1.0) mg/dL Ur Leukocyte Esterase (NEGATIVE) Urine RBC /HPF Urine WBC (0-5/HPF) /HPF Ur Epithelial Cells /HPF Urine Bacteria (0-FEW/HPF) /HPF Urine Mucus /LPF Urine HCG, Qual Urine Opiates Screen (NEGATIVE) Ur Oxycodone Screen (NEGATIVE) Urine Methadone Screen (NEGATIVE) Ur Barbiturates Screen (NEGATIVE) U Tricyclic Antidepress (NEGATIVE) Ur Phencyclidine Scrn (NEGATIVE) Ur Amphetamine Screen (NEGATIVE) U Methamphetamines Scrn (NEGATIVE) Urine MDMA Screen (NEGATIVE) U Benzodiazepines Scrn (NEGATIVE) Urine Cocaine Screen (NEGATIVE) U Marijuana (THC) Screen (NEGATIVE) Ethyl Alcohol mg/dL Meds: Medications Generic Name Dose Route Start Last Admin Trade Name Freq PRN Reason Stop Dose Admin Sodium Chloride 10 ml 08/30/17 18:20 08/30/17 19:01 Saline Flush FLUSH 10 ml ASDIRECTED PRN Administration Keep Vein Open Discontinued Medications Generic Name Dose Route Start Last Admin Trade Name Freq PRN Reason Stop Dose Admin Aspirin 324 mg 08/30/17 18:36 08/30/17 19:00 Aspirin PO 08/30/17 18:37 324 mg ONETIME ONE Administration - Re-Assessments/Exams Free Text/Narrative Re-Assessment/Exam: 08/30/17 18:47 Care of pt transferred to Tae TOVAR at shift change. Departure - Departure Disposition: Home, Self-Care 01 Clinical Impression: Nonspecific chest pain, Anxiety about health Instructions: Nonspecific Chest Pain, [id number] Referrals: Moisés Banks, [facility] [employer] [employer] [Primary Care Provider] - Forms: ED Department Discharge Care Plan Goals: The patient was advised of the examination, EKG and lab results during the visit. The patient was given an oral dose of Ativan while in the ED. The patient was encouraged to follow through with the ultrasound scheduled for tomorrow. If the patient has any additional symptoms or concerns, the patient should follow-up with her primary care facility or return to the emergency department. - My Orders Last 24 Hours: My Active Orders 08/30/17 19:21 LORazepam [Ativan] 0.5 mg PO ONETIME ONE - Assessment/Plan Last 24 Hours: My Active Orders 08/30/17 19:21 LORazepam [Ativan] 0.5 mg PO ONETIME ONE <Tae Chau - Last Filed: 08/30/17 19:26> ED HPI GENERAL MEDICAL PROBLEM - History of Present Illness Context: Reports: Other Associated Symptoms: Reports: Chest Pain ED EXAM, GENERAL - Physical Exam Exam: See Below Exam Limited By: No Limitations General Appearance: Alert, WD/WN, Moderate Distress Eye Exam: Bilateral Eye: EOMI, Normal Inspection, PERRL Ears: Normal External Exam, Normal Canal, Hearing Grossly Normal, Normal TMs Nose: Normal Inspection, Normal Mucosa, No Blood Throat/Mouth: Normal Inspection, Normal Lips, Normal Teeth, Normal Gums, Normal Oropharynx, Normal Voice, No Airway Compromise Head: Atraumatic, Normocephalic Neck: Normal Inspection, Supple, Non-Tender, Full Range of Motion Respiratory/Chest: No Respiratory Distress, Lungs Clear, Normal Breath Sounds, No Accessory Muscle Use, Chest Non-Tender Cardiovascular: Normal Peripheral Pulses, Regular Rate, Rhythm, No Edema, No Gallop, No JVD, No Murmur, No Rub GI/Abdominal: Normal Bowel Sounds, Soft, Non-Tender, No Organomegaly, No Distention, No Abnormal Bruit, No Mass (Female) Exam: Deferred Rectal (Female) Exam: Deferred Back Exam: Normal Inspection, Full Range of Motion, NT Extremities: Normal Inspection, Normal Range of Motion, Non-Tender, Normal Capillary Refill, No Pedal Edema Neurological: Alert, Oriented, CN II-XII Intact, Normal Cognition, Normal Gait, Normal Reflexes, No Motor/Sensory Deficits Psychiatric: Normal Affect, Normal Mood Skin Exam: Warm, Dry, Intact, Normal Color, No Rash Lymphatic: No Adenopathy Departure - Departure Time of Disposition: 19:23 Condition: Fair
[2017-08-30] MEDS ORDERED: Sodium Chloride 0.9% 10 ML Syringe FLUSH PRN (18:20)
[2017-08-30] MEDS ORDERED: Aspirin 81 MG Tab.Chew PO ONE (18:36)
[2017-08-30 19:04] LABS: CHLORIDE,CL 103 mmol/L (101-111); SODIUM,NA 137 mmol/L (135-145)
[2017-08-30] MEDS ORDERED: LORazepam 0.5 MG Tab PO ONE (19:21)
[2017-08-30 19:28] VITALS: BP 109/64
== END 2017-08-30 19:32 | disposition home or self-care (01) ==
LOC: DL.ED 18:05
DX: F41.9 Anxiety disorder, unspecified (principal); I10 Essential (primary) hypertension; E11.9 Type 2 diabetes mellitus without complications; E03.9 Hypothyroidism, unspecified; Z88.8 Allergy status to other drugs, medicaments and biological substances; Z88.2 Allergy status to sulfonamides; Z79.899 Other long term (current) drug therapy
CPT/HCPCS: 36415; 71045; 80053; 80305; 81001; 81025; 82140; 82150; 83690; 83880; 84484; 85025; 85379; 85610; 85730; 93005; 93010; 99283; 99285; A9270; G0480; J7050

== ENCOUNTER 2018-05-08 15:10 | Emergency (ER) | payer MEDICARE, MEDICAID ==
[2018-05-08] MEDS ORDERED: Bacitracin Oint 1 GM U/D Packet TOP ONE (15:31)
[2018-05-08] MEDS ORDERED: Clindamycin HCl 150 MG Cap PO ONE (15:33)
[2018-05-08 15:35] VITALS: BP 133/68
--- NOTE | 2018-05-08 15:42 | EDM.PDOC ---
Scribed by Mallory Doe 05/08/18 1521 for Sp Jolly MD ED HPI GENERAL MEDICAL PROBLEM - General Chief Complaint: Upper Extremity Injury/Pain Stated Complaint: INFECTION IN FINGERS RIGHT HAND Time Seen by Provider: 05/08/18 15:12 Source of Information: Reports: Patient, RN, RN Notes Reviewed History Limitations: Reports: No Limitations - History of Present Illness INITIAL COMMENTS - FREE TEXT/NARRATIVE: Patient presents to ER with complaint of pain and swelling of the cuticle of the right second and third fingers. Denies fever, drainage or any injury. Onset was 3 days ago and is getting worse. Onset Date: 05/05/18 Duration: Getting Worse Location: Reports: Upper Extremity, Right Quality: Reports: Ache Severity: Moderate Improves with: Reports: None Worsens with: Reports: None Associated Symptoms: Reports: No Other Symptoms Right Finger-Middle Pain Score (Numeric/FACES): 8 - Related Data Allergies Allergy/AdvReac Type Severity Reaction Status Date / Time cefdinir [Cefdinir] Allergy Rash Verified 05/08/18 15:15 sulfamethoxazole Allergy Airway Verified 05/08/18 15:15 [From [facility]] Tightness Home Meds: Home Meds QUEtiapine Fumarate [Seroquel] 200 mg PO BEDTIME 07/22/13 [History] Albuterol [Ventolin HFA] 2 puff INH Q6H PRN 08/23/13 [History] Fluticasone/Salmeterol [Advair 250-50] 1 puff INH BID 06/04/14 [History] Gabapentin [Neurontin] 600 mg PO TID 07/06/15 [History] Levothyroxine 150 mcg PO ACBREAKFAST 02/07/16 [History] Furosemide [Lasix] 20 mg PO DAILY 11/20/16 [History] Spironolactone 100 mg PO DAILY 11/20/16 [History] Albuterol Sulfate 1 each INH Q4H PRN 03/11/17 [History] Ondansetron [Zofran] 4 mg PO Q6H PRN 02/09/18 [History] Pyridoxine HCl [Vitamin B-6] 25 mg PO DAILY 02/09/18 [History] Cariprazine Hydrochloride [Vraylar] 3 mg PO DAILY 05/08/18 [History] QUEtiapine [SEROquel] 100 mg PO DAILY PRN 05/08/18 [History] Past Medical History HEENT History: Reports: Impaired Vision Other HEENT History: wears glasses Cardiovascular History: Reports: Hypertension Respiratory History: Reports: Bronchitis, Recurrent, COPD, Other (See Below) Other Respiratory History: chronic bronchitis Gastrointestinal History: Reports: Cirrhosis, GERD, Hepatitis Other Gastrointestinal History: HEP C Genitourinary History: Reports: Chronic Renal Insuffiency, Other (See Below) Other Genitourinary History: Stage 2. 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 disc disease in neck and back. Neurological History: Reports: None, Migraines Psychiatric History: Reports: Bipolar, PTSD Endocrine/Metabolic History: Reports: Diabetes, Type II, Hypothyroidism Other Endocrine/Metabolic History: "weight loss treatment for DM II" Hematologic History: Reports: None Other Hematologic History: Low plateletts. Immunologic History: Reports: None Oncologic (Cancer) History: Reports: None - Infectious Disease History Infectious Disease History: Reports: Chicken Pox, Hepatitis C - Past Surgical History Female Surgical History: Reports: Section, Tubal Ligation Musculoskeletal Surgical History: Reports: Arthroscopic Knee Social & Family History - Family History Family Medical History: Noncontributory - Caffeine Use Caffeine Use: Reports: Soda Other Caffeine Use: 4 cans/day - Living Situation & Occupation Living situation: Reports: with Family Occupation: Employed ED ROS GENERAL - Review of Systems Review Of Systems: ROS reveals no pertinent complaints other than HPI. ED EXAM, GENERAL - Physical Exam Exam: See Below Exam Limited By: No Limitations General Appearance: Alert, No Apparent Distress, Other (Chronically ill but non- toxic appearing) Throat/Mouth: Normal Inspection, Normal Lips, Normal Voice, No Airway Compromise Head: Atraumatic, Normocephalic Neck: Normal Inspection Respiratory/Chest: No Respiratory Distress Cardiovascular: Normal Peripheral Pulses Extremities: Normal Capillary Refill, Other (Rt hand 2nd and 3rd digit with cuticle inflammation, swelling, erythema and fluctuance consist with paronychia) Neurological: Alert, Oriented, No Motor/Sensory Deficits Psychiatric: Normal Mood Course - Vital Signs Last Recorded V/S: Last Vital Signs Temp 35.7 C 05/08/18 15:22 Pulse 96 05/08/18 15:22 Resp 18 05/08/18 15:22 BP 133/68 05/08/18 15:22 Pulse Ox 100 05/08/18 15:22 - Orders/Labs/Meds Orders: Active Orders 24 hr Category Date Time Status CULTURE WOUND [RM] Stat Lab 05/08/18 15:38 Ordered Meds: Medications Discontinued Medications Generic Name Dose Route Start Last Admin Trade Name Juan C PRN Reason Stop Dose Admin Bacitracin 1 dose 05/08/18 15:31 Bacitracin Oint 1 Gm TOP 05/08/18 15:32 ONETIME ONE Clindamycin HCl 300 mg 05/08/18 15:33 Cleocin PO 05/08/18 15:34 ONETIME ONE - Re-Assessments/Exams Free Text/Narrative Re-Assessment/Exam: 05/08/18 15:40 18g needle used for simple I&D of Rt hand 2nd & 3rd fingers with paronychia w/ abscess. No anesth. Moderate amt. of purulent drainage. Culture obtained. No drains. No complications. Dressing by RN. Departure - Departure Time of Disposition: 15:33 Disposition: Home, Self-Care 01 Condition: Good Clinical Impression: Paronychia - Discharge Information *PRESCRIPTION DRUG MONITORING PROGRAM REVIEWED*: Not Applicable *COPY OF PRESCRIPTION DRUG MONITORING REPORT IN PATIENT LAUREN: Not Applicable Instructions: Paronychia, [id number] Forms: ED Department Discharge Additional Instructions: RX: Bactroban ointment 2%. RX: Dicloxacillin 200mg. RX: Clindamycin 300mg. Wash fingers several times a day in chlorhexidine. Follow up in clinic if not improving in 4 to 5 days. - My Orders Last 24 Hours: My Active Orders 05/08/18 15:38 CULTURE WOUND [RM] Stat - Assessment/Plan Last 24 Hours: My Active Orders 05/08/18 15:38 CULTURE WOUND [RM] Stat I have read and agree with the documentation that has been completed regarding this visit. By signing this record, I attest that the documentation was completed in my physical presence and is an accurate record of the encounter.
== END 2018-05-08 15:51 | disposition home or self-care (01) ==
LOC: DL.ED 15:10
DX: L03.011 Cellulitis of right finger (principal); J44.9 Chronic obstructive pulmonary disease, unspecified; I12.9 Hypertensive chronic kidney disease with stage 1 through stage 4 chronic kidney disease, or unspecified chronic kidney disease; N18.9 Chronic kidney disease, unspecified; E11.22 Type 2 diabetes mellitus with diabetic chronic kidney disease; Z79.899 Other long term (current) drug therapy; Z88.2 Allergy status to sulfonamides; Z88.1 Allergy status to other antibiotic agents
CPT/HCPCS: 10060; 10160; 87070; 87077; 87186; 99283; A9270